=== PATIENT | male | born 1935 | race African-American/Black ===

== ENCOUNTER 2017-01-29 10:51 | Inpatient (IN) ==
[2017-01-29] MEDS ORDERED: methylPREDNISolone SOD SUC 125 MG/2 ML VIAL IV STA (11:08)
[2017-01-29] MEDS ORDERED: ALBUTEROL 2.5 MG/3 ML NEB RESP TX SCH (11:30)
[2017-01-29] MEDS ORDERED: methylPREDNISolone SOD SUC 125 MG/2 ML VIAL ONE (11:50)
--- NOTE | 2017-01-29 11:59 | XRay Report ---
XR chest 1V portable Indication: Shortness of breath Comparison: 04 Jan 2017 Findings: The heart and mediastinum are stable in size and configuration. Small amount of aorta calcification is present similar to previous exam. The pulmonary vascularity is normal in caliber. No lung infiltrates, effusions, pneumothorax or other abnormality is demonstrated. Impression: No acute cardiopulmonary disease. PROCEDURE INTERPRETED AT [facility] DEPARTMENT OF RADIOLOGY Final Report Signed by: Dr. Zac Colon
[2017-01-29 12:01] LABS: ABG Base Excess 1.4 MMOL/L (-2.5-2.5); ABG HCO3 27.1 MMOL/L (20-26); ABG Oxygen Saturation 96.5 % (95-100); ABG PCO2 46.3 MM HG (35-48); ABG PH 7.385 (7.35-7.45); ABG PO2 86.3 MM HG (80-95); ABG TCO2 28.5 MMOL/L (23-27)
[2017-01-29 12:17] LABS: Basophils % 0.6 % (0.0-0.8); Eosinophils # 0.2 10*3/uL (0.0-0.87); Eosinophils % 3.3 % (0.00-10.9); Hematocrit 46.6 VOL% (42.0-52.0); Hemoglobin 15.8 GM/DL (14.0-18.0); Immature Granulocytes % 0.6 %; Immature Granulocytes Absolute 0.04 #; Lymphocytes # 1.2 10*3/uL (1.4-4.0); Lymphocytes % 16.8 % (21.2-54.2); Mean Corpuscular HGB Conc 33.9 GM/DL (32-36); Mean Corpuscular Hemoglobin 28 PG (27-34); Mean Corpuscular Volume 82.6 FL (87-102); Mean Platelet Volume 9.2 FL (9.6-12.0); Monocytes # 0.4 10*3/uL (0.11-0.8); Monocytes % 5.8 % (1.7-12.7); Neutrophils # 5.1 10*3/uL (1.4-7.4); Neutrophils % 72.9 % (38.7-73.9); Platelet Count 214 T/CUMM (130-400); Red Blood Count 5.64 MC/CUMM (3.8-5.5); Red Cell Distribution Width 15.1 % (9.3-17.3)
[2017-01-29 12:48] LABS: Alanine Aminotransferase 17 U/L (16-61); Albumin 3.6 G/DL (3.4-5.0); Alkaline Phosphatase 102 U/L (45-117); Aspartate Amino Transferase 15 U/L (0-37); Blood Urea Nitrogen 14 MG/DL (7-18); Calcium 9.2 MG/DL (8.5-10.1); Glucose 111 MG/DL (74-106); Osmolality,Calculated 282.3 MOS/KG (273-304); Potassium 4.4 MMOL/L (3.5-5.1); Sodium 141 MMOL/L (136-145); Total Protein 6.8 G/DL (6.4-8.3); Troponin I Only < 0.015 NG/ML (0.00-0.045)
[2017-01-29] MEDS ORDERED: ALBUTEROL/IPRATROPIUM 3 ML NEB RESP TX STA (12:57)
--- NOTE | 2017-01-29 14:46 | Emergency Department Note ---
Jenny Ricketts Brittany, am scribing for, and in the presence of, Anastacio Calzada MD 11:10. Zheng Rikcetts Doug C, MD, personally performed the services described in this documentation, ascribed by Carla Alvarado in my presence, and it is both accurate and complete [id number] . Arrival - Arrival Chief Complaint: Shortness of Breath Stated Complaint: sob ED Nursing Triage Note: C/o shortness of breath with exertion-onset "a while ago ", worse this morning. Denies CP or N/V. Mode of Arrival: Ambulatory Limitations: No Limitations Source: Patient Time Seen by Provider: 01/29/17 11:03 - History of Present Illness HPI Narrative: Patient is a 81-year-old black male presents emergency room complaining of increasing shortness of breath for the last 2 days. Patient has a history of COPD and states he is having more of his typical exacerbations. Patient states is felt a little warm but has not measured his fever. Denies any increased sputum production or pain. He has not had any hemoptysis or chest pain. Patient states he still continues to smoke in spite of [employer] advice to the contrary. 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 Onset (ago): hour(s) (Started to get worse this morning) Consistency: constant Severity: moderate, similar to previous episodes Allergies/Adverse Reactions: Allergies Allergy/AdvReac Type Severity Reaction Status Date / Time No Known Allergies Allergy Verified 11/28/16 13:56 Home Medications: Home Medications Medication Instructions Recorded Confirmed Type Albuterol Sulfate [Proair HFA] 90 mcg INH Q4-6H PRN 01/03/16 01/29/17 History Iron,Carbonyl/Ascorbic Acid 1 tablet PO DAILY 01/03/16 01/29/17 History [Icar-C Tablet] Lovastatin 10 mg PO DAILY W/SUPPER 01/03/16 01/29/17 History Tamsulosin [Flomax] 0.4 mg PO BID 01/03/16 01/29/17 History Albuterol/Ipratropium Neb [Duoneb] 3 ml RESP TX TID #90 nebulization 02/24/16 Rx solution Quinapril [Accupril] 20 mg PO DAILY #30 tablet 02/24/16 01/29/17 Rx Tiotropium Br/Olodaterol HCl 2.5 gm IH RT DAILY 03/23/16 01/29/17 History [Stiolto Respimat Inhal [place]] Finasteride 5 mg PO DAILY 06/09/16 01/29/17 History Theophylline ER Tab (24 Hr) 200 mg PO BID 12/21/16 01/29/17 History Furosemide Tab [Lasix Tab] 20 mg PO DAILY 01/29/17 01/29/17 History Potassium Chloride 8 meq PO QPM 01/29/17 01/29/17 History Review of System - Review of System 12 point system: reviewed and no additional remarkable complaints except as stated - Review of System Constitutional: Present: fever (Per pt, fever at night ) Respiratory: Absent: cough Cardiovascular: Present: dyspnea on exertion. Absent: chest pain Medical,Surgical,& Family Hx - Medical History Cardio: History of: Cardiac Dysrhythmia (brief atrial flutter), Hypertension HEENT: History of: Dental Problems (DENTURES-full set) Endocrine: History of: Dyslipidemia No history of: Diabetes Mellitus (NIDDM) (DR TOOK OFF MED SUGAR WENT UP DUE TO STEROIDS) Rheumatology: History of;: Gout Respiratory: History of: COPD, Respiratory Problems (emphysema) Genitourinary: History of: Prostate Problems (BPH), Genitourinary Cancer ( bladder cancer) Other: History of: Cancer (Bladder), MRSA - Surgical History HEENT Surgeries: Surgical HX of: Eye Surgery (CATARACTS) Abdominal Surgeries: Surgical HX of: Colonoscopy, EGD Reproductive Surgeries: Surgical HX of;: Genitourinary Surgery (turp) - Family History Family History: Reports;: Family Cancer (SISTER), Family Hypertension (SIBLINGS) Denies;: Family Anesthesia Reaction, Family Diabetes, Family Heart Disease, Family Psychiatric Problems, Family Stroke - Social History Smoking Status: Current some day smoker Frequency of Alcohol Use: None Type of Drug Use: None Exam Vital Signs: Vital Signs Temperature 98.7 F 01/29/17 12:58 Pulse Rate 94 H 01/29/17 14:12 Respiratory Rate 20 01/29/17 14:17 Blood Pressure 106/72 01/29/17 12:58 O2 Sat by Pulse Oximetry 99 01/29/17 14:17 - General General appearance: alert, in distress (Mild respiratory distress) - Head Head exam: Present: atraumatic, normocephalic, normal inspection - Eye Eye exam: Present: normal appearance, PERRL, EOMI. Absent: nystagmus, miosis, mydriasis - ENT ENT exam: Present: normal exam, normal oropharynx, mucous membranes moist, TM's normal bilaterally, normal external ear exam - Neck Neck exam: Present: normal inspection, full ROM, trachea midline. Absent: tenderness, meningismus, lymphadenopathy, thyromegaly - Chest Chest inspection: Present: normal inspection, symmetric chest wall rise. Absent : tenderness, rash, abscess - Respiratory Respiratory exam: Present: wheezes (Diffuse wheezing ). Absent: normal lung sounds bilaterally, prolonged expiratory phase, rales, respiratory distress, rhonchi, stridor - Cardiovascular Cardiovascular exam: Present: regular rate, normal rhythm, normal heart sounds. Absent: murmur, rubs, gallop, clicks, JVD - Abdominal Exam Abdominal exam: Present: soft, normal bowel sounds. Absent: distention, tenderness, guarding, rebound, rigidity - Rectal Exam Rectal exam: Present: deferred - Extremities Exam Extremities exam: Present: normal inspection, full ROM, normal capillary refill. Absent: tenderness, pedal edema, joint swelling, calf tenderness - Back Exam Back exam: Present: normal inspection, full ROM. Absent: tenderness, muscle spasm, rashes - Neurological Exam Neurological exam: Present: alert, oriented X3, CN II-XII intact. Absent: motor sensory deficit - Psychiatric Psychiatric exam: Present: normal affect, normal mood. Absent: depressed, agitated, anxious, flat affect, manic - Skin Skin exam: Present: warm, dry, intact, normal color. Absent: rash, cyanosis, diaphoresis, erythema, pallor, mottled Course Course Narrative: Patient was given 3 albuterol treatments, IV Solu-Medrol and DuoNeb treatment. Patient's wheezing improved dramatically with his O2 sats staying in the high 90s on 2 L of oxygen. Stop his oxygen his O2 sats continued to stay adequate with him measuring above 95%. He continued to have significant respiratory wheeze however and it was felt he warranted admission. I discussed patient with Farida amaya covering the hospitalist service she will see the patient here in the emergency room Results - Labs CBC & BMP: 01/29/17 11:51 01/29/17 11:51 Lab Results: I have reviewed the patients labs - EKG EKG results: interpreted by SAVI, sinus rhythm (99 bpm), no acute changes - Diagnostic Findings Procedure: Chest x-ray: report reviewed by me (Hyperexpanded) Disposition Clinical Impression: COPD exacerbation Case discussed with: patient, patient's family Disposition: Still a Patient Condition: Guarded Time of Disposition: 14:46
--- NOTE | 2017-01-29 15:15 | Hospitalist History & Physical ---
<Azeem Arevalo - Last Filed: 01/29/17 15:04> Assessment and Plan (1) COPD exacerbation Status: Acute Assessment and plan: We will start empiric antibiotics, inhaled bronchodilators, and intravenous corticosteroids. We will recheck labs and chest x-ray in a.m. We have already requested pulmonary consult with Dr. Oliva, patient is known to him. Current Visit: Yes History of Present Illness Chief complaint: Shortness of breath History of present illness: This is a very pleasant 81-year-old male that presented to the ED at [facility] this afternoon for evaluation of shortness of breath. Patient has a medical history significant for: Chronic obstructive pulmonary disease, hypertension, anemia, atrial flutter, dyslipidemia, non-insulin- dependent diabetes mellitus, gouty arthritis, emphysema, benign prostatic hypertrophy, carcinoma of the bladder, and methicillin-resistant Staphylococcus aureus. Patient has a surgical history significant for: Cataract removal, colonoscopy, and transurethral resection of the prostate. The patient reported the onset of the above symptoms 2 days prior to presentation. The patient has a long standing history of chronic obstructive pulmonary disease and attributes these symptoms to his typical exacerbations. Pertinent positives include: shortness of breath; pertinent negatives include: nausea, abdominal pain, syncope, chest pain, arm and jaw pain, and vertigo In addition, the patient reported that he possibly had fever on last night however, he never took his temperature. The patient was assessed at the time of presentation. Labs were obtained; hematology panel reported white blood cell count at 7.0, hemoglobin 15.8, hematocrit of 46.6, and platelet count at 214. Arterial blood gas was obtained reported pH of 7.385, PCO2 46.3, PO2 86.3, and HC03 at 27.1. Chemistry panel reported sodium at 141, potassium 4.4, chloride 105, carbon dioxide 28, anion gap at 12.4, BUN of 14, creatinine at 1.20, glucose at 111, calculated osmolality at 282.3, calcium at 9.2, total bilirubin is 0.40, AST 15, ALT at 17 , alkaline phosphatase at 102, total protein is 6.8, and albumin 3.6. Cardiac enzymes were obtained which reported a troponin of less than 0.015. BNP was noted at 15. Chest x-ray was obtained which was benign for any acute cardiopulmonary disease processes. After brief discussion with both Dr. Calzada and Dr. Miller, the patient will be admitted to the hospitalist services for continuation of care. We will consult Dr. Oliva, patient is known to him to assist in the management of the patient's chronic pulmonary obstructive disease. Home Medications Medication Instructions Recorded Confirmed Type Albuterol Sulfate [Proair HFA] 90 mcg INH Q4-6H PRN 01/03/16 01/29/17 History Iron,Carbonyl/Ascorbic Acid 1 tablet PO DAILY 01/03/16 01/29/17 History [Icar-C Tablet] Lovastatin 10 mg PO DAILY W/SUPPER 01/03/16 01/29/17 History Tamsulosin [Flomax] 0.4 mg PO BID 01/03/16 01/29/17 History Albuterol/Ipratropium Neb [Duoneb] 3 ml RESP TX TID #90 nebulization 02/24/16 Rx solution Quinapril [Accupril] 20 mg PO DAILY #30 tablet 02/24/16 01/29/17 Rx Tiotropium Br/Olodaterol HCl 2.5 gm IH RT DAILY 03/23/16 01/29/17 History [Stiolto Respimat Inhal [place]] Finasteride 5 mg PO DAILY 06/09/16 01/29/17 History Theophylline ER Tab (24 Hr) 200 mg PO BID 12/21/16 01/29/17 History Furosemide Tab [Lasix Tab] 20 mg PO DAILY 01/29/17 01/29/17 History Potassium Chloride 8 meq PO QPM 01/29/17 01/29/17 History Allergies Allergy/AdvReac Type Severity Reaction Status Date / Time No Known Allergies Allergy Verified 11/28/16 13:56 Medical,Surgical,& Family Hx - Medical History Cardio: History of: Cardiac Dysrhythmia (brief atrial flutter), Hypertension HEENT: History of: Dental Problems (DENTURES-full set) Endocrine: History of: Dyslipidemia No history of: Diabetes Mellitus (NIDDM) (DR TOOK OFF MED SUGAR WENT UP DUE TO STEROIDS) Rheumatology: History of;: Gout Respiratory: History of: COPD, Respiratory Problems (emphysema) Genitourinary: History of: Prostate Problems (BPH), Genitourinary Cancer ( bladder cancer) Other: History of: Cancer (Bladder), MRSA - Surgical History HEENT Surgeries: Surgical HX of: Eye Surgery (CATARACTS) Abdominal Surgeries: Surgical HX of: Colonoscopy, EGD Reproductive Surgeries: Surgical HX of;: Genitourinary Surgery (turp) - Family History Family History: Reports;: Family Cancer (SISTER), Family Hypertension (SIBLINGS) Denies;: Family Anesthesia Reaction, Family Diabetes, Family Heart Disease, Family Psychiatric Problems, Family Stroke - Social History Smoking Status: Current some day smoker Frequency of Alcohol Use: None Type of Drug Use: None 12 point system: reviewed and no additional remarkable complaints except as stated Exam - Constitutional Vitals: Period Temp Pulse Resp BP Sys/Walters Pulse Ox Last 24 Hr 98.7 F-98.7 F 91-95 14-22 106-106/72-72 94-100 General appearance: normal weight, no acute distress - Head Head exam: Present: normal inspection, normocephalic, atraumatic - Eye Eye exam: Present: EOMI. Absent: conjunctival injection Pupils: Present: LACHO, normal accommodation - ENT ENT exam: Present: normal exam, normal external ear exam, normal oropharynx - Neck Neck exam: Present: normal inspection. Absent: lymphadenopathy, meningismus, tenderness, thyromegaly - Respiratory Respiratory exam: Present: wheezes. Absent: accessory muscle use, chest wall tenderness, decreased breath sounds, prolonged expiratory phase, rales, rhonchi , stridor - Cardiovascular Cardiovascular exam: Present: regular rate and rhythm. Absent: bradycardia, carotid bruit, diastolic murmur, gallop, JVD, rubs, systolic murmur - GI/Abdominal GI/Abdominal exam: Present: normal bowel sounds, soft. Absent: tenderness - Extremities Exam Extremities exam: Present: normal inspection, normal capillary refill, full ROM. Absent: edema - Back Exam Back exam: Present: normal inspection - Neurological Exam Neurological exam: Present: alert, oriented X3, CN II-XII intact - Psychiatric Psychiatric exam: Present: normal affect, normal mood - Skin Skin exam: Present: normal color, warm, dry Results - Labs CBC & BMP: 01/29/17 11:51 01/29/17 11:51 Lab Results: I have reviewed the past 24 hour labs <Shonda Miller - Last Filed: 01/29/17 16:51> History of Present Illness History of present illness: Shared visit with Azeem Arevalo NP. Mr. Colby is a 81 year old male with a history of COPD and bladder cancer who presented to the hospital with increased SOB x 1 day. According to the daughter, pt has had progressive LUGO since the beginning of the month. He reports increased wheezing and mild dry cough. No fever. No chest pain. No palpitations. No nausea or vomiting. No nausea or vomiting. No abd pain. Mild lightheadedness. He still feels weak. No change to meds recently. Daughter also reports he has had more ataxia. No slurred speech, change in vision, headache, difficulty swallowing, chest pain, or palpitations, parathesias or paralysis. A 10 point review of systems was reviewed and was otherwise unremarkable. PMH, PSH, MEDS, ALLERGIES, FH, SH reviewed. See STITCH WHEELER H and H and P and I agree. Vitals: reviewed GEN: A and O x 3 HEENT: PERRL, EOMI, Sclera clear, Conjunctiva pink, nares patent. No discharge or epistaxis noted. O/P clear. NECK: supple. No LAD or thyromegaly. No LAD CV:RRR no M LUNGS: CTAB diminished lung sounds with prolonged expiratory phase, nonlabored ABD: soft, NT, ND, +BS EXT: Warm no c/c/e Neuro: CN 2-12, 5/5 strength of upper and lower extremities bilaterally. Sensory exam is grossly intact. Gait not assessed. Finger to nose intact. Babinski absent. No clonus noted. Labs/Investigative studies reviewed. A/P: 1. Acute exacerbation of COPD 2. Reported History of DM2 3. BPH 4. History of bladder cancer and BPH 5. Gout 6. Hx ataxia - IV steroids, Bronchodilators, inhalers, check theophylline level. Resume theophylline pending level. Oxygen as needed - I.S.S. and check HgbA1c. - On Flomax and Finasteride. - CT head, PT/OT consult. - DVT prophylaxis - GI prophylaxis since on high dose steroids Medical,Surgical,& Family Hx - Social History Have you smoked in the last 12 months: Yes Time spent discussing smoking cessation with patient: more than 10 minutes Marital Status: Lives With:: daughter lives within walking distance Exam - Constitutional Vitals: Period Temp Pulse Resp BP Sys/Walters Pulse Ox Last 24 Hr 98.7 F-98.7 F 91-95 14-22 106-136/72-76 92-100 Results - Labs CBC & BMP: 01/29/17 11:51 01/29/17 11:51
[2017-01-29] MEDS ORDERED: ALBUTEROL 2.5 MG/3 ML NEB RESP TX PRN (15:57)
[2017-01-29] MEDS ORDERED: GLUCAGON 1 MG VIAL IM PRN (16:27)
[2017-01-29] MEDS ORDERED: DEXTROSE 50% 25 GM/50 ML VIAL IV PRN (16:27)
--- NOTE | 2017-01-29 17:15 | CT Report ---
Referring physician: Shonda Miller MD Exam: CT brain without contrast Date: 01/29/2017 Comparison: None Reason: Ataxia, bladder cancer Technique: Axial images of the head were obtained without the use of contrast. Total DLP was 1103.60 mGy*cm. Findings: No hydrocephalus or midline shift is present. There is no evidence of an acute infarction, recent intracranial hemorrhage or abnormal mass effect. The osseous structures appear intact. Diffuse atrophy and cerebral hypodensities. Several areas of calcification are noted. There is a small hyperdense finding in the left clinton. The mastoid air cells and visualized paranasal sinuses are clear. Impression: No acute infarction identified. Diffuse atrophy and significant microvascular disease. Multiple calcifications are noted including a somewhat linear finding in the left clinton which could be related to possible vascular structure. This finding makes it more difficult to exclude possible minimal hemorrhage in this location. MRI of the brain including postcontrast scans may be helpful for further evaluation as discussed with the patient's nurse, Priscilla at 5:10 PM on 01/29/2017. The CT exam was performed using one or more of the following dose reduction techniques: Automated exposure control and adjustment of the mA and/or kV according to patient size. PROCEDURE INTERPRETED AT [facility] DEPARTMENT OF RADIOLOGY Final Report Signed by: Dr. Jory Edge
[2017-01-29] MEDS: INSULIN LISPRO 100 UNIT/ML SUBCUT SCH ×2 (18:42→21:55)
--- NOTE | 2017-01-29 18:49 | Magnetic Resonance Report ---
Exam: MR head/brain wo con Date: 01/29/2017 5:25 PM Comparison: CT brain 01/29/2017 Indication: Ataxia, bladder cancer, abnormal CT Technique:[Multiple acquisitions were obtained including sagittal T1, coronal T2, and axial ADC, diffusion, FLAIR, T2, GRE, and T1 scans without contrast only. Scans were obtained on a 1.5 Mirta magnet.] Findings: The ventricles remain normal in size with no midline displacement. The pituitary has a normal appearance and the cerebellar tonsils are normal in their location. No acute infarction is identified in the diffusion scans. No evidence of hemorrhage, mass, or extracerebral collection. Diffuse atrophy and diffuse FLAIR/T2 hyperintensities.Enlarged perivascular spaces are noted which represent a normal variant. Some of these findings may represent chronic left basal ganglia/thalamic chronic lacunar infarcts. No acute findings in the paranasal sinuses, orbits, temporal bones, or [place] of [place]. Impression: No acute infarction, mass, or area of hemorrhage. Diffuse cerebral atrophy and significant microvascular disease. T2 hyperintensities can also be associated with demyelinating disease, vasculitis, viral illness, etc. Enlarged perivascular spaces which can be seen as a normal variant. However some of the findings may be related to chronic left basal ganglia/thalamic lacunar infarcts. PROCEDURE INTERPRETED AT [facility] DEPARTMENT OF RADIOLOGY Final Report Signed by: Dr. Jory Edge
[2017-01-29] MEDS: ALBUTEROL/IPRATROPIUM 3 ML NEB RESP TX SCH (19:29)
[2017-01-29] MEDS: TAMSULOSIN 0.4 MG CAPSULE PO SCH (21:54)
[2017-01-29] MEDS: BUDESONIDE/FORMOTEROL 80-4.5 INHALER 6.9 GM INH SCH (21:54)
[2017-01-29] MEDS: methylPREDNISolone SOD SUC 40 MG/1 ML VIAL IV SCH (21:54)
[2017-01-29] MEDS: CEFEPIME 1,000 MG in SODIUM CHLORIDE 0.9% 100 ML IV SCH (21:55)
[2017-01-30] MEDS: ALBUTEROL/IPRATROPIUM 3 ML NEB RESP TX SCH ×5 (01:12→23:51)
[2017-01-30 03:57] LABS: Basophils % 0.1 % (0.0-0.8); Hematocrit 42.9 VOL% (42.0-52.0); Hemoglobin 14.4 GM/DL (14.0-18.0); Immature Granulocytes % 0.7 %; Immature Granulocytes Absolute 0.05 #; Lymphocytes # 0.5 10*3/uL (1.4-4.0); Lymphocytes % 6.2 % (21.2-54.2); Mean Corpuscular HGB Conc 33.6 GM/DL (32-36); Mean Corpuscular Hemoglobin 27 PG (27-34); Mean Corpuscular Volume 81.7 FL (87-102); Mean Platelet Volume 9.9 FL (9.6-12.0); Monocytes # 0.1 10*3/uL (0.11-0.8); Monocytes % 1.1 % (1.7-12.7); Neutrophils # 6.9 10*3/uL (1.4-7.4); Neutrophils % 91.9 % (38.7-73.9); Platelet Count 205 T/CUMM (130-400); Red Blood Count 5.25 MC/CUMM (3.8-5.5); Red Cell Distribution Width 15.1 % (9.3-17.3); White Blood Count 7.5 T/CUMM (4-12)
[2017-01-30 04:12] LABS: Phosphorous 2.5 MG/DL (2.5-4.9)
[2017-01-30 04:14] LABS: Risk Ratio 2.05; VLDL CHOLESTEROL 14.2 MG/DL
[2017-01-30 04:17] LABS: Albumin 3.1 G/DL (3.4-5.0); Bilirubin,Total 1.4 MG/DL (0.2-1.0); Calcium 8.6 MG/DL (8.5-10.1); Osmolality,Calculated 290.1 MOS/KG (273-304); Potassium 4.6 MMOL/L (3.5-5.1); Total Protein 6.1 G/DL (6.4-8.3)
[2017-01-30 04:25] LABS: Free T4 (Free Thyroxine) 0.95 NG/DL (0.76-1.46); Thyroid Stimulating Hormone 0.488 uIU/ml (0.358-3.74)
[2017-01-30 04:58] LABS: Lymphocytes 8 % (20-55); Segmented Neutrophils 92 % (50-85); Total Cells Counted 100
[2017-01-30 04:59] LABS: Platelet Estimate Normal
[2017-01-30] MEDS: CEFEPIME 1,000 MG in SODIUM CHLORIDE 0.9% 100 ML IV SCH ×3 (06:00→21:20)
[2017-01-30] MEDS: methylPREDNISolone SOD SUC 40 MG/1 ML VIAL IV SCH ×3 (06:00→21:15)
--- NOTE | 2017-01-30 06:56 | EKG Report ---
Stationary ECG Study [facility] ER Test Date: 01/29/2017 11:02:59 AM Pat Name: SIDNEY WALKER Department: Room: 224 Gender: M Scalder: : 1935 Requested by: Varinder Ferrer Order Number: [id number] MD: WILEY ARRINGTON Intervals [place] Rate: 99 P: 75 AR: 151 QRS: 56 QRSD: 77 T: 83 QT: 321 QTc: 377 Interpretive Statements SINUS RHYTHM Electronically Signed On 01-30-17 10:05:10 CDT by WILEY ARRINGTON [email or web address]
--- NOTE | 2017-01-30 07:23 | Hospitalist Progress Note ---
Hospitalist: Subjective Interval history: Orthostatics negative. Shortness of breath improving. Still with some slight wheezing. Tolerating oral intake. Still has some dyspnea on exertion. Exam - Constitutional Vitals: Period Temp Pulse Resp BP Sys/Walters Pulse Ox Last 24 Hr 97.2 F-98.7 F 91-98 14-22 106-157/70-76 92-100 Exam: GEN: A and O x 3, sitting in a chair HEENT: PERRL, EOMI, Sclera clear, Conjunctiva pink, nares patent. No discharge or epistaxis noted. O/P clear. NECK: supple. No LAD or thyromegaly. No LAD CV:RRR no M LUNGS: Slightly better aeration slight wheeze heard bilaterally on expiration with diminished lung sounds. Prolonged expiratory phase, nonlabored ABD: soft, NT, ND, +BS EXT: Warm no c/c/e Neuro: CN 2-12, 5/5 strength of upper and lower extremities bilaterally. Sensory exam is grossly intact. Gait not assessed. Finger to nose intact. Babinski absent. No clonus noted. Results - Labs CBC & BMP: 01/30/17 03:24 01/30/17 03:24 - Impressions 1. Acute exacerbation of COPD in a patient with ongoing tobacco use - IV steroids, Bronchodilators, inhalers, Theophylline level low at 6.4. Resume theophylline. Oxygen as needed - Smoking cessation recommended - Nicotine patch 2. Reported History of DM2 (diet controlled HgbA1c 6.0) - Cont I.S.S. and accuchecks ac,hs while on steroids. 3. BPH - On Flomax and Finasteride. 4. History of bladder cancer 5. Gout 6. 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 PT/OT consult. - Awaiting orthostatics - RPR Not reactive; TSH and Free T4 within normal limits. - Vitamin B12 supplementation - F/u ECHO, carotid dopplers 7. Vitamin B12 deficiency - start supplementation with IM x 7 days, then continue supplementation 8. CKD stage 3 - monitor creatinine - DVT prophylaxis - GI prophylaxis since on high dose steroids I will be away several days. One of my associates will follow in my absence.
[2017-01-30] MEDS: INSULIN LISPRO 100 UNIT/ML SUBCUT SCH ×4 (07:52→21:27)
[2017-01-30] MEDS ORDERED: CYANOCOBALAMIN 1000 MCG/1 ML VIAL IM SCH (09:00)
[2017-01-30] MEDS: NICOTINE 7 MG/24 HR PATCH TRANSDERM SCH (09:36)
[2017-01-30] MEDS: TAMSULOSIN 0.4 MG CAPSULE PO SCH ×2 (09:36→21:15)
[2017-01-30] MEDS: FINASTERIDE 5 MG TABLET PO SCH (09:37)
[2017-01-30] MEDS: PANTOPRAZOLE 40 MG TABLET PO SCH (09:38)
[2017-01-30] MEDS: BUDESONIDE/FORMOTEROL 80-4.5 INHALER 6.9 GM INH SCH ×2 (09:39→21:21)
[2017-01-30] MEDS: THEOPHYLLINE ER (24 HR) 200 MG CAPSULE PO SCH ×2 (09:39→21:15)
--- NOTE | 2017-01-30 09:59 | Ultrasound Report ---
Exam: Carotid ultrasound Date: 01/30/2017 Comparison: None Technique: Duplex scans of the carotid and vertebral arteries using B-mode/Griffith scale imaging and Doppler spectral analysis and color flow. Reason: Ataxia Findings: The right ICA measures 5.6 mm in diameter and the left ICA measures 5.0 mm in diameter. Color-flow documented in the visualized arteries. The peak systolic velocities are as follows: Right CCA: 100.3 cm/s Right ICA: 72.9 cm/s Right ECA: 112.0 cm/s Left CCA: 88.5 cm/s Left ICA: 87.2 cm/s Left ECA: 99.8 cm/s The peak systolic ICA/CCA velocity ratios are as follows: 0.7 on the right and 1.0 on the left. Antegrade flow is present in both vertebral arteries. Impression:[Less than 50% stenosis in both internal carotid arteries with heterogeneous plaque formation. Antegrade flow in both vertebral arteries.] The Society of Radiologists in Ultrasound consensus conference criteria was used. The Ultrasound images were captured and stored. PROCEDURE INTERPRETED AT [facility] DEPARTMENT OF RADIOLOGY Final Report Signed by: Dr. Jory Edge
--- NOTE | 2017-01-30 10:00 | Pulmonology Consult Note ---
Assessment and Plan (1) COPD exacerbation Status: Acute Assessment and plan: Patient comes in with a mild COPD exacerbation. He appears to be relatively stable at present. He will continue with his bronchodilator therapy. Current Visit: No (2) Bladder tumor Status: Resolved Assessment and plan: The patient has had bladder cancer and is in remission at this point. Current Visit: No (3) Hypertension Status: Chronic Assessment and plan: His blood pressure and heart rate appear stable. Current Visit: No Qualifiers: Hypertension type: essential hypertension Qualified Code(s): I10 - Essential (primary) hypertension (4) CKD (chronic kidney disease) stage 3, GFR 30-59 ml/min Status: Acute Assessment and plan: His creatinine is up to 1.4 Current Visit: No History of Present Illness Chief complaint: Shortness of breath History of present illness: Mr. Colby is a 81 year old black male that has a long history of COPD. He came into the emergency room yesterday because he has been having more shortness of breath for a few days. His family says that he was giving out fairly easily over the past several weeks. He felt like he was having more trouble breathing and maybe had a little fever. He was admitted to the emergency room with an exacerbation of his COPD. He says he is not coughing up much sputum. He has not been having any chest pain. He says he is comfortable at present. He does still smoke some. Home Medications Medication Instructions Recorded Confirmed Type Albuterol Sulfate [Proair HFA] 90 mcg INH Q4-6H PRN 01/03/16 01/29/17 History Iron,Carbonyl/Ascorbic Acid 1 tablet PO DAILY 01/03/16 01/29/17 History [Icar-C Tablet] Lovastatin 10 mg PO DAILY W/SUPPER 01/03/16 01/29/17 History Tamsulosin [Flomax] 0.4 mg PO BID 01/03/16 01/29/17 History Albuterol/Ipratropium Neb [Duoneb] 3 ml RESP TX TID #90 nebulization 02/24/16 Rx solution Quinapril [Accupril] 20 mg PO DAILY #30 tablet 02/24/16 01/29/17 Rx Tiotropium Br/Olodaterol HCl 2.5 gm IH RT DAILY 03/23/16 01/29/17 History [Stiolto Respimat Inhal [place]] Finasteride 5 mg PO DAILY 06/09/16 01/29/17 History Theophylline ER Tab (24 Hr) 200 mg PO BID 12/21/16 01/29/17 History Furosemide Tab [Lasix Tab] 20 mg PO DAILY 01/29/17 01/29/17 History Potassium Chloride 8 meq PO DAILY 01/29/17 01/29/17 History Allergies Allergy/AdvReac Type Severity Reaction Status Date / Time No Known Allergies Allergy Verified 11/28/16 13:56 - Constitutional Constitutional: Present: chills, fatigue, fever(s). Absent: weight loss - EENT Eyes: Absent: loss of vision Ears: Absent: decreased hearing Nose, mouth and throat: Absent: dysphagia, headache(s), sinus pressure - Cardiovascular Cardiovascular: Present: dyspnea. Absent: chest pain at rest, edema, orthopnea , palpitations, PND - Respiratory Respiratory: Present: cough, dyspnea, wheezing. Absent: hemoptysis, change in phlegm color - Gastrointestinal Gastrointestinal: Absent: abdominal pain, change in bowel habits, dysphagia, nausea, vomiting - Genitourinary Genitourinary: Present: difficulty urinating, hematuria (Has a history of bladder cancer). Absent: dysuria - Musculoskeletal Musculoskeletal: Present: arthralgias. Absent: muscle weakness - Neurological Neurological: Absent: abnormal speech, focal weakness, paresthesias - Psychiatric Psychiatric: Absent: anxiety Exam (Pulmonay) H&P - Constitutional Vitals: Period Temp Pulse Resp BP Sys/Walters Pulse Ox Last 24 Hr 96.9 F-98.7 F 61-98 14-22 106-157/70-76 90-100 General appearance: normal weight, no acute distress (He looks comfortable sitting up in a chair.) - Head Head exam: Present: normal inspection, normocephalic - Eye Eye exam: Present: EOMI. Absent: conjunctival injection, scleral icterus Pupils: Present: LACHO - ENT ENT exam: Present: normal exam, other (No sinus tenderness) - Neck Neck exam: Present: normal inspection. Absent: lymphadenopathy, thyromegaly - Respiratory Respiratory exam: Present: decreased breath sounds, prolonged expiratory phase, wheezes (He has minimal wheezing at present.) - Cardiovascular Cardiovascular exam: Present: regular rate and rhythm. Absent: gallop, JVD, systolic murmur - GI/Abdominal GI/Abdominal exam: Present: normal bowel sounds, soft. Absent: distended, organomegaly, tenderness - Extremities Exam Extremities exam: Absent: calf tenderness, edema - Back Exam Back exam: Present: normal inspection - Neurological Exam Neurological exam: Present: alert, oriented X3, CN II-XII intact - Psychiatric Psychiatric exam: Present: normal affect, normal mood - Skin Skin exam: Present: warm, dry Medical,Surgical,& Family Hx - Medical History Cardio: History of: Cardiac Dysrhythmia (brief atrial flutter), Hypertension HEENT: History of: Dental Problems (DENTURES-full set) Endocrine: History of: Dyslipidemia No history of: Diabetes Mellitus (NIDDM) (DR TOOK OFF MED SUGAR WENT UP DUE TO STEROIDS) Rheumatology: History of;: Gout Respiratory: History of: COPD, Respiratory Problems (emphysema) Genitourinary: History of: Prostate Problems (BPH), Genitourinary Cancer ( bladder cancer) Other: History of: Cancer (Bladder), MRSA - Surgical History HEENT Surgeries: Surgical HX of: Eye Surgery (CATARACTS) Abdominal Surgeries: Surgical HX of: Colonoscopy, EGD Reproductive Surgeries: Surgical HX of;: Genitourinary Surgery (turp) - Family History Family History: Reports;: Family Cancer (SISTER), Family Hypertension (SIBLINGS) Denies;: Family Anesthesia Reaction, Family Diabetes, Family Heart Disease, Family Psychiatric Problems, Family Stroke - Social History Smoking Status: Current some day smoker Frequency of Alcohol Use: None Type of Drug Use: None Results - Labs CBC & BMP: 01/30/17 03:24 01/30/17 03:24 Labs: His PO2 was 86 with a PCO2 of 46 and a pH of 7.38 - Diagnostic Findings Procedure: Chest x-ray: image reviewed by me, report reviewed by me (Chest x- ray shows COPD changes.)
--- NOTE | 2017-01-30 10:19 | XRay Report ---
Portable chest Date: 01/30/2017 Clinical history: COPD Comparison: 01/29/2017 Technique: Portable AP sitting chest Findings: The heart is small and compressed by the over expanded lungs. Chronic scarring in the lungs with stable mediastinum and osseous structures. Impression: COPD with chronic scarring. PROCEDURE INTERPRETED AT [facility] DEPARTMENT OF RADIOLOGY Final Report Signed by: Dr. Jory Edge
[2017-01-31 04:10] LABS: Albumin 3.2 G/DL (3.4-5.0); Osmolality,Calculated 292.1 MOS/KG (273-304); Phosphorous 2.3 MG/DL (2.5-4.9); Potassium 4.8 MMOL/L (3.5-5.1)
[2017-01-31] MEDS: CEFEPIME 1,000 MG in SODIUM CHLORIDE 0.9% 100 ML IV SCH ×3 (06:35→20:16)
[2017-01-31] MEDS: methylPREDNISolone SOD SUC 40 MG/1 ML VIAL IV SCH ×3 (06:35→20:08)
[2017-01-31] MEDS: ALBUTEROL/IPRATROPIUM 3 ML NEB RESP TX SCH ×3 (07:11→19:18)
--- NOTE | 2017-01-31 08:47 | Pulmonology Progress Note ---
Pulmonary - PN: Subj Interval history: Patient is an 81-year-old black man that has a long history of COPD. He came in with a mild exacerbation and is doing better now. He said he had a fairly good night. He had some coughing spells earlier this morning but they are better. He feels like his breathing is doing okay. He is tolerating his medication fairly well. Exam (Progress Note) - Constitutional Vitals: Period Temp Pulse Resp BP Sys/Walters Pulse Ox Last 24 Hr 96.3 F-98.2 F 50-108 18-22 123-144/66-84 91-99 Exam: General appearance: normal weight, no acute distress (He looks comfortable sitting up in a chair. He is not in any respiratory distress now.) - Head Head exam: Present: normal inspection, normocephalic - Eye Eye exam: Present: EOMI. Absent: conjunctival injection, scleral icterus Pupils: Present: LACHO - ENT ENT exam: Present: normal exam, other (No sinus tenderness) - Neck Neck exam: Present: normal inspection. Absent: lymphadenopathy, thyromegaly - Respiratory Respiratory exam: Present: He does have decreased breath sounds but is moving air okay with just very minimal rhonchi. - Cardiovascular Cardiovascular exam: Present: regular rate and rhythm. Absent: gallop, JVD, systolic murmur - GI/Abdominal GI/Abdominal exam: Present: normal bowel sounds, soft. Absent: distended, organomegaly, tenderness - Extremities Exam Extremities exam: Absent: calf tenderness, edema, he is moving his arms and legs well. - Back Exam Back exam: Present: normal inspection - Neurological Exam Neurological exam: Present: alert, oriented X3, CN II-XII intact - Psychiatric Psychiatric exam: Present: normal affect, normal mood - Skin Skin exam: Present: warm, dry Results - Labs CBC & BMP: 01/30/17 03:24 01/31/17 02:20 Assessment and Plan (1) COPD exacerbation Status: Acute Assessment and plan: Patient comes in with a mild COPD exacerbation. He appears to be relatively stable at present. He does have severe lung disease but seems to be stable at present. He is tolerating the steroids and bronchodilator therapy. He can probably go home in a day or so. Current Visit: No (2) Hypertension Status: Chronic Assessment and plan: His blood pressure and heart rate appear stable. Current Visit: No Qualifiers: Hypertension type: essential hypertension Qualified Code(s): I10 - Essential (primary) hypertension (3) CKD (chronic kidney disease) stage 3, GFR 30-59 ml/min Status: Acute Assessment and plan: His creatinine is up to 1.5 Current Visit: No
[2017-01-31] MEDS: NICOTINE 7 MG/24 HR PATCH TRANSDERM SCH (09:06)
[2017-01-31] MEDS: BUDESONIDE/FORMOTEROL 80-4.5 INHALER 6.9 GM INH SCH ×2 (09:08→20:17)
[2017-01-31] MEDS: TAMSULOSIN 0.4 MG CAPSULE PO SCH ×2 (09:08→20:17)
[2017-01-31] MEDS: FINASTERIDE 5 MG TABLET PO SCH (09:08)
[2017-01-31] MEDS: PANTOPRAZOLE 40 MG TABLET PO SCH (09:08)
[2017-01-31] MEDS: THEOPHYLLINE ER (24 HR) 200 MG CAPSULE PO SCH (09:08)
[2017-01-31] MEDS: INSULIN LISPRO 100 UNIT/ML SUBCUT SCH ×4 (09:32→22:10)
--- NOTE | 2017-01-31 09:40 | Hospitalist Progress Note ---
Assessment and Plan (1) COPD exacerbation Status: Acute Current Visit: Yes (2) CKD (chronic kidney disease) stage 3, GFR 30-59 ml/min Status: Acute Current Visit: No (3) History of prostate cancer Status: Acute Current Visit: No (4) Hypertension Status: Chronic Assessment and plan: -Continue nebulized breathing treatments, IV antibiotics, IV steroids, oxygen per nasal cannula -Patient will need evaluation for home oxygen prior to discharge -Continue nicotine patch -Continue chronic home medications for treatment of BPH as well as hypertension -Creatinine level slowly increasing during the hospital stay, will repeat in the a.m., medications evaluated, no obvious cause noted -Continue DVT and GI prophylaxis Current Visit: No Qualifiers: Hypertension type: essential hypertension Qualified Code(s): I10 - Essential (primary) hypertension Hospitalist: Subjective Interval history: Patient is an 81-year-old male admitted to the hospital with an acute exacerbation of COPD. The patient continues to complain of dyspnea on exertion. However, he reports improvement of shortness of breath at rest as well as cough. He denies any chest pain, fevers or chills overnight. He is tolerating a diet as well. Exam - Constitutional Vitals: Period Temp Pulse Resp BP Sys/Walters Pulse Ox Last 24 Hr 96.3 F-98.2 F 50-108 18-22 123-143/66-84 91-99 General appearance: normal weight, other (Elderly male, awake and alert, sitting in a chair) - Head Head exam: Present: normal inspection - Eye Eye exam: Present: EOMI Pupils: Present: LACHO - ENT ENT exam: Present: normal exam - Respiratory Respiratory exam: Present: wheezes (Mild expiratory wheezing bilaterally). Absent: chest wall tenderness, decreased breath sounds, rales, rhonchi, stridor - Cardiovascular Cardiovascular exam: Present: regular rate and rhythm. Absent: JVD, rubs, systolic murmur, tachycardia - GI/Abdominal GI/Abdominal exam: Present: normal bowel sounds, soft. Absent: ascites, distended, tenderness - Extremities Exam Extremities exam: Present: full ROM. Absent: edema - Neurological Exam Neurological exam: Present: alert, oriented X3, CN II-XII intact. Absent: altered - Psychiatric Psychiatric exam: Present: normal affect, normal mood - Skin Skin exam: Present: normal color, warm Results - Labs CBC & BMP: 01/30/17 03:24 01/31/17 02:20 Lab Results: I have reviewed the past 24 hour labs (Creatinine level continues to increase)
--- NOTE | 2017-01-31 10:26 | ECHO Report ---
Emilio Colby Exam Date: 01/30/2017 10:25 Referring Physician: Technologist: Gin Hobbs Age: 81 Ht (in): 70 Wt (lb): 151 Gender: M Exam Location: [facility] Echo Indications: Diabetes, COPD, Hx. CVA, HTN BP: 135 / 74 HR: 91 Rhythm: Sinus Technical Quality: Technically difficult study IMPRESSIONS Normal left ventricular size and systolic function, left ventricular ejection fraction is estimated at 60 %. There is grade 1 diastolic dysfunction. The left ventricular cavity size structure and function are normal. Tricuspid regurgitation velocities suggest a RVSP of 26 mmHg plus the right atrial pressure. MEASUREMENTS (Male / Female) Normal Values 2D ECHO LV Diastolic Diameter PLAX 3.5 cm 4.2 - 5.9 / 3.9 - 5.3 cm LV Systolic Diameter PLAX 1.4 cm LV Fractional Shortening PLAX 60.0 % IVS Diastolic Thickness 1.1 cm 0.6 - 1.0 / 0.6 - 0.9 cm LVPW Diastolic Thickness 1.1 cm 0.6 - 1.0 / 0.6 - 0.9 cm RV Internal Dim ED PLAX 2.0 cm Aortic Root Diameter 2.6 cm LA Systolic Diameter LX 2.5 cm 3.0 - 4.0 / 2.7 - 3.8 cm DOPPLER TR Peak Velocity 254.0 cm/s TR Peak Gradient 25.8 mmHg FINDINGS Left Ventricle Normal left ventricular size and systolic function, left ventricular ejection fraction is estimated at 60 %. There is no regional wall motion abnormality. There is grade 1 diastolic dysfunction. The left ventricular cavity size structure and function are normal Right Ventricle Normal right ventricular size. Right Atrium Normal right atrial size. Left Atrium Normal left atrial size. Mitral Valve Mild mitral valve sclerosis. Mild mitral valve regurgitation. Aortic Valve Mild aortic valve sclerosis. Tricuspid Valve Morphologically normal tricuspid valve. Mild tricuspid valve regurgitation. Tricuspid regurgitation velocities suggest a RVSP of 26 mmHg plus the right atrial pressure. Pulmonic Valve Morphologically normal pulmonic valve. Mild pulmonary valve regurgitation. Pericardium No pericardial effusion. Aorta Normal size aortic root and proximal ascending aorta. Elisabeth Matamoros (Electronically Signed) Final Date: 31 January 2017 10:25
[2017-02-01] MEDS: ALBUTEROL/IPRATROPIUM 3 ML NEB RESP TX SCH ×3 (00:12→13:50)
[2017-02-01] MEDS: methylPREDNISolone SOD SUC 40 MG/1 ML VIAL IV SCH ×2 (03:18→12:56)
[2017-02-01] MEDS: CEFEPIME 1,000 MG in SODIUM CHLORIDE 0.9% 100 ML IV SCH ×2 (04:18→12:52)
[2017-02-01 05:15] LABS: Basophils % 0.1 % (0.0-0.8); Hematocrit 39.3 VOL% (42.0-52.0); Hemoglobin 13.2 GM/DL (14.0-18.0); Immature Granulocytes % 2.5 %; Immature Granulocytes Absolute 0.36 #; Lymphocytes # 0.6 10*3/uL (1.4-4.0); Lymphocytes % 4.5 % (21.2-54.2); Mean Corpuscular HGB Conc 33.6 GM/DL (32-36); Mean Corpuscular Hemoglobin 27 PG (27-34); Mean Corpuscular Volume 81.5 FL (87-102); Mean Platelet Volume 9.6 FL (9.6-12.0); Monocytes # 0.4 10*3/uL (0.11-0.8); Monocytes % 2.7 % (1.7-12.7); Neutrophils # 12.7 10*3/uL (1.4-7.4); Neutrophils % 90.2 % (38.7-73.9); Platelet Count 193 T/CUMM (130-400); Red Blood Count 4.82 MC/CUMM (3.8-5.5); Red Cell Distribution Width 14.9 % (9.3-17.3); White Blood Count 14.1 T/CUMM (4-12)
[2017-02-01 05:49] LABS: Lymphocytes 3 % (20-55); Platelet Estimate Normal; Segmented Neutrophils 95 % (50-85); Total Cells Counted 100
[2017-02-01 05:52] LABS: Calcium 8.8 MG/DL (8.5-10.1); Osmolality,Calculated 291.3 MOS/KG (273-304); Potassium 4.4 MMOL/L (3.5-5.1)
--- NOTE | 2017-02-01 08:49 | Hospitalist Progress Note ---
Assessment and Plan (1) COPD exacerbation Status: Acute Assessment and plan: Impression: 1. COPD exacerbation 2. Dizziness Plan: I will check back after lunch to see how he has done with physical therapy. He may be ready for discharge. This note was completed using [employer] voice recognition software. There may be lay out and detail drafter errors as a result. Current Visit: No Hospitalist: Subjective Interval history: Follow-up COPD exacerbation. The patient says that his breathing appears to be at baseline. His main concern is some dizziness when he is up and walking. He says that he has had this at home. Review of the PT note shows that he had some dizziness when he was walking on Wednesday. Will see what their assessment looks like today. He may be about ready for discharge. Exam - Constitutional Vitals: Period Temp Pulse Resp BP Sys/Walters Pulse Ox Last 24 Hr 97.2 F-98.4 F 50-85 18-20 117-137/63-77 94-100 Vital signs are noted above. Heart is regular with distant tones and no murmur or gallop. He has some rare scattered expiratory wheezes. He is sitting up at the bedside with no noted nystagmus or dizziness. He is awake and alert. Results - Labs CBC & BMP: 02/01/17 04:44 02/01/17 04:44 Lab Results: I have reviewed the past 24 hour labs
[2017-02-01] MEDS: INSULIN LISPRO 100 UNIT/ML SUBCUT SCH ×3 (08:51→16:42)
[2017-02-01] MEDS: TAMSULOSIN 0.4 MG CAPSULE PO SCH (08:52)
[2017-02-01] MEDS: NICOTINE 7 MG/24 HR PATCH TRANSDERM SCH (08:53)
[2017-02-01] MEDS: PANTOPRAZOLE 40 MG TABLET PO SCH (08:58)
[2017-02-01] MEDS: FINASTERIDE 5 MG TABLET PO SCH (08:58)
[2017-02-01] MEDS: BUDESONIDE/FORMOTEROL 80-4.5 INHALER 6.9 GM INH SCH (08:59)
--- NOTE | 2017-02-01 12:08 | Pulmonology Progress Note ---
Pulmonary - PN: Subj Interval history: Patient is an 81-year-old black man that has a long history of COPD. He came in with a mild exacerbation and is doing better now. He feels like his breathing is better today and he is having much less shortness of breath. He is sitting up and looks comfortable. He says his cough and congestion are improved. Exam (Progress Note) - Constitutional Vitals: Period Temp Pulse Resp BP Sys/Walters Pulse Ox Last 24 Hr 97.2 F-98.4 F 50-85 17-20 117-137/63-77 94-100 Exam: General appearance: normal weight, no acute distress (He looks comfortable sitting up in a chair. He is not in any respiratory distress now.) - Head Head exam: Present: normal inspection, normocephalic - Eye Eye exam: Present: EOMI. Absent: conjunctival injection, scleral icterus Pupils: Present: LACHO - ENT ENT exam: Present: normal exam, other (No sinus tenderness) - Neck Neck exam: Present: normal inspection. Absent: lymphadenopathy, thyromegaly - Respiratory Respiratory exam: Present: He does have decreased breath sounds but he has better air movement with less wheezing now. - Cardiovascular Cardiovascular exam: Present: regular rate and rhythm. Absent: gallop, JVD, systolic murmur - GI/Abdominal GI/Abdominal exam: Present: normal bowel sounds, soft. Absent: distended, organomegaly, tenderness - Extremities Exam Extremities exam: Absent: calf tenderness, edema, he is moving his arms and legs well. - Back Exam Back exam: Present: normal inspection - Neurological Exam Neurological exam: Present: alert, oriented X3, CN II-XII intact - Psychiatric Psychiatric exam: Present: normal affect, normal mood - Skin Skin exam: Present: warm, dry Results - Labs CBC & BMP: 02/01/17 04:44 02/01/17 04:44 Assessment and Plan (1) COPD exacerbation Status: Acute Assessment and plan: Patient comes in with a mild COPD exacerbation. He appears to be relatively stable at present. He does have severe lung disease but seems to be stable at present. He is tolerating the steroids and bronchodilator therapy. Overall he is much better and he can go home from a pulmonary standpoint. He will continue Stiolto at home and can taper his prednisone. Current Visit: No (2) Hypertension Status: Chronic Assessment and plan: His blood pressure and heart rate appear stable. Current Visit: No Qualifiers: Hypertension type: essential hypertension Qualified Code(s): I10 - Essential (primary) hypertension (3) CKD (chronic kidney disease) stage 3, GFR 30-59 ml/min Status: Acute Assessment and plan: His creatinine is up to 1.4 Current Visit: No
--- NOTE | 2017-02-01 14:50 | Discharge Summary ---
Hospital Course - Hospital Course Hospital Course: Discharge diagnosis COPD with acute exacerbation Dizziness The patient presented to the hospital with some dyspnea. He was felt to be in a COPD exacerbation. He also complained of some dizziness, which was described mainly as an unsteady gait. He has a cane at home. Physical therapy saw the patient. On the day of discharge, he was able to walk over 100 feet. His COPD improved with appropriate treatment. He is now ready for discharge. Medication reconciliation has been performed. Regular diet. Activity as tolerated. Follow-up with local physician. I asked the family if they were interested in home health, and they will defer for now. They may discuss this with their primary customer care professional if the patient does not continue to improve. This note was completed using Dr. [employer] voice recognition software. There may be director of valuation errors as a result. Diagnosis - Discharge Diagnosis (1) COPD exacerbation Status: Acute Discharge Plan - Discharge Data Disposition: Disch To Home/Self Care Condition at Discharge: Stable Discharge Diet: advance to your usual diet Activity: resume usual activities as tolerated Hygiene: no restrictions Weight Bearing at Discharge: full weight bearing - Discharge Medications Continue Lovastatin 10 mg PO DAILY W/SUPPER Tamsulosin [Flomax] 0.4 mg PO BID Iron,Carbonyl/Ascorbic Acid [Icar-C Tablet] 1 tablet PO DAILY Albuterol Sulfate [Proair HFA] 90 mcg INH Q4-6H PRN PRN Reason: Shortness Of Breath Albuterol/Ipratropium Neb [Duoneb] 3 ml RESP TX TID #90 nebulization solution Quinapril [Accupril] 20 mg PO DAILY #30 tablet Tiotropium Br/Olodaterol HCl [Stiolto Respimat Inhal [place]] 2.5 gm IH RT DAILY Finasteride 5 mg PO DAILY Potassium Chloride 8 meq PO DAILY Furosemide Tab [Lasix Tab] 20 mg PO DAILY PRN PRN Reason: Edema Theophylline ER Tab (24 Hr) 200 mg PO BID - Follow Up or Referral - Forms/Instructions Exam - Constitutional Vitals: Period Temp Pulse Resp BP Sys/Walters Pulse Ox Last 24 Hr 97.2 F-98.4 F 49-85 17-20 117-137/63-77 94-100 See exam documented earlier today. Discharge Results Labs on day of discharge: Labs from last 24 hours 02/01/17 02/01/17 02/01/17 11:09 07:40 04:44 WBC RBC Hgb Hct MCV MCH MCHC RDW Plt Count MPV Neut % (Auto) Lymph % (Auto) [place] % (Auto) Eos % (Auto) Baso % (Auto) Neut # (Auto) Lymph # (Auto) [place] # (Auto) Eos # (Auto) Baso # (Auto) Total Counted Immature Gran % Nucleated RBC % Immature Gran # Segmented Neutrophils Lymphocytes Monocytes Nucleated RBCs # Platelet Estimate Pappenheimer Bodies Sodium 141 Potassium 4.4 Chloride 107 Carbon Dioxide 25 Anion Gap 13.4 BUN 27 H Creatinine 1.40 H GFR Calculation 58 BUN/Creatinine Ratio 19.00 Glucose 210 H POC Glucose 213 H 169 H Calculated Osmolality 291.3 Calcium 8.8 02/01/17 01/31/17 01/31/17 04:44 20:31 15:23 WBC 14.1 H D RBC 4.82 Hgb 13.2 L Hct 39.3 L MCV 81.5 L MCH 27 MCHC 33.6 RDW 14.9 Plt Count 193 MPV 9.6 Neut % (Auto) 90.2 H Lymph % (Auto) 4.5 L [place] % (Auto) 2.7 Eos % (Auto) 0.0 Baso % (Auto) 0.1 Neut # (Auto) 12.7 H Lymph # (Auto) 0.6 L [place] # (Auto) 0.4 Eos # (Auto) 0.0 Baso # (Auto) 0.0 Total Counted 100 Immature Gran % 2.5 Nucleated RBC % 0.0 Immature Gran # 0.36 Segmented Neutrophils 95 H Lymphocytes 3 L Monocytes 2 Nucleated RBCs # 0.00 Platelet Estimate Normal Pappenheimer Bodies Vegetable Trimmer Sodium Potassium Chloride Carbon Dioxide Anion Gap BUN Creatinine GFR Calculation BUN/Creatinine Ratio Glucose POC Glucose 188 H 207 H Calculated Osmolality Calcium DS: Provider Date of admission: 01/29/17 14:57 Primary care physician: Charlene Khan Attending physician on admission: Shonda Miller MD Consults: 01/29/17 15:57 Consult to Physician [CONS] Routine Comment: Consulting Provider: Raz Oliva When should Consulting Provider be notified: Now Consult to Specialist Group: Pulmonology Person Notified: Dr Raz Oliva Date Notified: 01/29/17 Time Notified: 17:15 Consult Notification Comment: per phone will see in am 01/29/17 16:30 Consult to Occupational Therapy [CONS] Routine Reason for Occupational Therapy: Evaluate and Treat Consult to Physical Therapy [CONS] Routine Reason for Physical Therapy: Evaluate and Treat Discharging clinician: Benito Engel MD Expected date of discharge: 02/01/17
[2017-02-01 16:15] VITALS: BP 129/60
== END 2017-02-01 16:41 | disposition home or self-care (01) | DRG 192 ==
LOC: N.ED 10:51 → SUATTDRO 14:57 → N.EDINP 14:57 → N.2E 15:55
PROVIDERS: ADMIT Pediatrics; ATTEND Internal Medicine Geriatric Medicine

== ENCOUNTER 2017-07-05 19:23 | Inpatient (IN) ==
[2017-07-05] MEDS ORDERED: methylPREDNISolone SOD SUC 125 MG/2 ML VIAL IV STA (20:09)
[2017-07-05] MEDS ORDERED: ALBUTEROL/IPRATROPIUM 3 ML NEB RESP TX STA (20:09)
[2017-07-05] MEDS ORDERED: SODIUM CHLORIDE 0.9% 500 ML IV STA (20:09)
[2017-07-05 20:58] LABS: Alanine Aminotransferase 14 U/L (16-61); Albumin 2.8 G/DL (3.4-5.0); Alkaline Phosphatase 101 U/L (45-117); Aspartate Amino Transferase 21 U/L (0-37); Blood Urea Nitrogen 25 MG/DL (7-18); Glucose 106 MG/DL (74-106); Magnesium 2.2 MG/DL (1.8-2.4); Osmolality,Calculated 276.8 MOS/KG (273-304); Sodium 137 MMOL/L (136-145); Total Protein 6.7 G/DL (6.4-8.3); Troponin I Only < 0.015 NG/ML (0.00-0.045)
[2017-07-05 21:03] LABS: Basophils % 0.4 % (0.0-0.8); Eosinophils % 0.1 % (0.00-10.9); Hematocrit 45.1 VOL% (42.0-52.0); Hemoglobin 15.6 GM/DL (14.0-18.0); Immature Granulocytes % 0.8 %; Immature Granulocytes Absolute 0.06 #; Lymphocytes # 0.7 10*3/uL (1.4-4.0); Lymphocytes % 9.2 % (21.2-54.2); Mean Corpuscular HGB Conc 34.6 GM/DL (32-36); Mean Corpuscular Hemoglobin 28 PG (27-34); Mean Corpuscular Volume 79.7 FL (87-102); Mean Platelet Volume 9.9 FL (9.6-12.0); Monocytes # 0.7 10*3/uL (0.11-0.8); Monocytes % 9.1 % (1.7-12.7); Neutrophils # 6.1 10*3/uL (1.4-7.4); Neutrophils % 80.4 % (38.7-73.9); Platelet Count 302 T/CUMM (130-400); Red Blood Count 5.66 MC/CUMM (3.8-5.5); Red Cell Distribution Width 13.8 % (9.3-17.3); White Blood Count 7.6 T/CUMM (4-12)
[2017-07-05] MEDS ORDERED: methylPREDNISolone SOD SUC 125 MG/2 ML VIAL ONE (21:13)
[2017-07-05] MEDS: ALBUTEROL 2.5 MG/3 ML NEB RESP TX SCH ×2 (21:20→23:10)
[2017-07-05] MEDS ORDERED: cefTRIAXone 1,000 MG in SODIUM CHLORIDE 0.9% 100 ML IV STA (21:53)
[2017-07-05] MEDS ORDERED: cefTRIAXone 1,000 MG VIAL ONE (21:57)
[2017-07-05 22:07] LABS: Apearance,Urine Slightly Hazy (Clear); Bacteria,Urine Occasional /HPF (Few); Bilirubin,Urine Negative (Negative); Blood, Urine Moderate mg/dL (Negative); Glucose,Urine (UA) Negative (Negative); Ketones,Urine Negative (Negative); Nitrite,Urine Negative (Negative); Protein,Urine 30 MG/DL; RBC,Urine 29 /HPF (0-4); Squamous Epithelial Cell,Urine Occasional /HPF (0-10); Urine Color Yellow (Yellow); Urine Specific Gravity 1.011 (1.001-1.035); WBC,Urine 2 /HPF (0-6)
[2017-07-06] MEDS ORDERED: FUROSEMIDE 20 MG TABLET PO PRN (02:49)
[2017-07-06] MEDS ORDERED: ONDANSETRON 4 MG/2 ML VIAL IV PRN (02:49)
[2017-07-06] MEDS ORDERED: BISACODYL 5 MG TABLET PO PRN (02:49)
[2017-07-06] MEDS ORDERED: ACETAMINOPHEN 325 MG TABLET PO PRN (02:49)
[2017-07-06] MEDS: ENOXAPARIN 30 MG/0.3 ML SYRINGE SUBCUT SCH (03:44)
[2017-07-06] MEDS: DEXTROSE 5% NACL 0.45% 1,000 ML IV SCH ×2 (03:44→16:15)
[2017-07-06 06:22] LABS: Basophils % 0.2 % (0.0-0.8); Hematocrit 38.2 VOL% (42.0-52.0); Immature Granulocytes % 0.4 %; Immature Granulocytes Absolute 0.02 #; Lymphocytes # 0.5 10*3/uL (1.4-4.0); Lymphocytes % 9.1 % (21.2-54.2); Mean Corpuscular Hemoglobin 27 PG (27-34); Mean Corpuscular Volume 80.1 FL (87-102); Mean Platelet Volume 9.4 FL (9.6-12.0); Monocytes # 0.1 10*3/uL (0.11-0.8); Neutrophils # 4.8 10*3/uL (1.4-7.4); Neutrophils % 88.3 % (38.7-73.9); Platelet Count 256 T/CUMM (130-400); Red Blood Count 4.77 MC/CUMM (3.8-5.5); Red Cell Distribution Width 13.8 % (9.3-17.3); White Blood Count 5.4 T/CUMM (4-12)
[2017-07-06 06:46] LABS: Band Neutrophils 4 % (0-10); Lymphocytes 9 % (20-55); Segmented Neutrophils 85 % (50-85); Total Cells Counted 100
[2017-07-06 06:47] LABS: Hypochromasia 1+; Microcytosis Slight; Ovalocytes Slight
[2017-07-06 06:51] LABS: Albumin 2.1 G/DL (3.4-5.0); Bilirubin,Total 0.4 MG/DL (0.2-1.0); Calcium 8.3 MG/DL (8.5-10.1); Magnesium 2.3 MG/DL (1.8-2.4); Osmolality,Calculated 286.8 MOS/KG (273-304); Potassium 4.2 MMOL/L (3.5-5.1); Risk Ratio 2.98; Total Protein 5.6 G/DL (6.4-8.3); VLDL CHOLESTEROL 13.8 MG/DL
[2017-07-06] MEDS: ALBUTEROL/IPRATROPIUM 3 ML NEB RESP TX SCH ×3 (07:46→19:43)
[2017-07-06] MEDS: TAMSULOSIN 0.4 MG CAPSULE PO SCH ×2 (10:19→21:43)
[2017-07-06] MEDS: IRON (CARBONYL)/VIT C/B12/FA TABLET PO SCH (10:20)
[2017-07-06] MEDS: POTASSIUM CHLORIDE 8 MEQ CAPSULE PO SCH (10:20)
[2017-07-06] MEDS: THEOPHYLLINE ER (24 HR) 400 MG TABLET PO SCH ×2 (10:20→21:42)
[2017-07-06] MEDS: PANTOPRAZOLE 40 MG TABLET PO SCH (10:20)
[2017-07-06] MEDS: QUINAPRIL 20 MG TABLET PO SCH (10:23)
[2017-07-06] MEDS: LOVASTATIN 20 MG TABLET PO SCH (18:12)
[2017-07-07] MEDS: ENOXAPARIN 30 MG/0.3 ML SYRINGE SUBCUT SCH (02:03)
[2017-07-07] MEDS: DEXTROSE 5% NACL 0.45% 1,000 ML IV SCH ×3 (04:21→18:37)
[2017-07-07 07:08] LABS: Basophils % 0.1 % (0.0-0.8); Hematocrit 36.9 VOL% (42.0-52.0); Hemoglobin 12.7 GM/DL (14.0-18.0); Immature Granulocytes % 1.3 %; Immature Granulocytes Absolute 0.11 #; Lymphocytes # 0.8 10*3/uL (1.4-4.0); Mean Corpuscular HGB Conc 34.4 GM/DL (32-36); Mean Corpuscular Hemoglobin 28 PG (27-34); Mean Corpuscular Volume 80.2 FL (87-102); Mean Platelet Volume 9.6 FL (9.6-12.0); Monocytes # 0.6 10*3/uL (0.11-0.8); Monocytes % 6.7 % (1.7-12.7); Neutrophils # 7.1 10*3/uL (1.4-7.4); Neutrophils % 82.9 % (38.7-73.9); Platelet Count 271 T/CUMM (130-400); Red Cell Distribution Width 13.9 % (9.3-17.3); White Blood Count 8.5 T/CUMM (4-12)
[2017-07-07] MEDS: ALBUTEROL/IPRATROPIUM 3 ML NEB RESP TX SCH ×3 (07:17→19:24)
[2017-07-07 07:28] LABS: Calcium 8.5 MG/DL (8.5-10.1); Osmolality,Calculated 290.3 MOS/KG (273-304); Potassium 4.2 MMOL/L (3.5-5.1)
[2017-07-07 07:32] LABS: Lymphocytes 4 % (20-55); Segmented Neutrophils 92 % (50-85); Total Cells Counted 100
[2017-07-07 07:33] LABS: Giant Platelets Few; Hypochromasia 1+; Microcytosis Slight; Ovalocytes Slight; Platelet Estimate Adequate
[2017-07-07] MEDS: POTASSIUM CHLORIDE 8 MEQ CAPSULE PO SCH (08:52)
[2017-07-07] MEDS: PANTOPRAZOLE 40 MG TABLET PO SCH (08:52)
[2017-07-07] MEDS: TAMSULOSIN 0.4 MG CAPSULE PO SCH ×2 (08:52→20:30)
[2017-07-07] MEDS: THEOPHYLLINE ER (24 HR) 400 MG TABLET PO SCH ×2 (08:52→20:30)
[2017-07-07] MEDS: IRON (CARBONYL)/VIT C/B12/FA TABLET PO SCH (08:52)
[2017-07-07] MEDS: QUINAPRIL 20 MG TABLET PO SCH (08:52)
[2017-07-07] MEDS: LOVASTATIN 20 MG TABLET PO SCH (16:15)
[2017-07-07] MEDS: DOXYCYCLINE HYCLATE 100 MG CAPSULE PO SCH (20:30)
[2017-07-08] MEDS: ALBUTEROL/IPRATROPIUM 3 ML NEB RESP TX SCH ×2 (07:20→13:10)
[2017-07-08] MEDS ORDERED: ENOXAPARIN 40 MG/0.4 ML SYRINGE SUBCUT SCH (09:00)
[2017-07-08] MEDS: IRON (CARBONYL)/VIT C/B12/FA TABLET PO SCH (09:31)
[2017-07-08] MEDS: POTASSIUM CHLORIDE 8 MEQ CAPSULE PO SCH (09:31)
[2017-07-08] MEDS: TAMSULOSIN 0.4 MG CAPSULE PO SCH (09:31)
[2017-07-08] MEDS: THEOPHYLLINE ER (24 HR) 400 MG TABLET PO SCH (09:31)
[2017-07-08] MEDS: QUINAPRIL 20 MG TABLET PO SCH (09:31)
[2017-07-08] MEDS: DOXYCYCLINE HYCLATE 100 MG CAPSULE PO SCH (09:32)
[2017-07-08] MEDS: PANTOPRAZOLE 40 MG TABLET PO SCH (09:32)
[2017-07-08 11:04] VITALS: BP 123/68
[2017-07-08] MEDS: DEXTROSE 5% NACL 0.45% 1,000 ML IV SCH (14:18)
== END 2017-07-08 16:00 | disposition home or self-care (01) | DRG 190 ==
LOC: N.ED 19:23 → N.EDINP 07-06 02:10 → SUATTDRO 07-06 02:10 → N.3E 07-06 02:38
PROVIDERS: ADMIT Internal Medicine; ATTEND Hospitalist

== ENCOUNTER 2017-08-29 08:57 | Inpatient (IN) ==
[2017-08-29] MEDS ORDERED: LEVOFLOXACIN INJ 750 MG in PREMIX 1 EACH IV STA (09:49)
[2017-08-29] MEDS ORDERED: ONDANSETRON 4 MG/2 ML VIAL IV STA (09:49)
[2017-08-29] MEDS ORDERED: methylPREDNISolone SOD SUC 125 MG/2 ML VIAL IV STA (09:49)
[2017-08-29] MEDS ORDERED: FUROSEMIDE 100 MG/10 ML VIAL IV STA (09:49)
[2017-08-29] MEDS ORDERED: ALBUTEROL NEB SOLN 5 MG/ML 20 ML/BOTTLE RESP TX SCH (10:00)
[2017-08-29] MEDS ORDERED: LEVOFLOXACIN INJ 0 ML IV ONE (10:09)
[2017-08-29] MEDS ORDERED: methylPREDNISolone SOD SUC 125 MG/2 ML VIAL ONE (10:10)
[2017-08-29] MEDS ORDERED: FUROSEMIDE 100 MG/10 ML VIAL ONE (10:10)
[2017-08-29] MEDS ORDERED: ONDANSETRON 4 MG/2 ML VIAL ONE (10:10)
[2017-08-29 10:41] LABS: Basophils # 0.1 10*3/uL (0.0-0.2); Basophils % 0.8 % (0.0-0.8); Eosinophils # 0.4 10*3/uL (0.0-0.87); Eosinophils % 4.8 % (0.00-10.9); Hematocrit 45.7 VOL% (42.0-52.0); Hemoglobin 14.9 GM/DL (14.0-18.0); Immature Granulocytes % 0.4 %; Immature Granulocytes Absolute 0.03 #; Lymphocytes # 0.7 10*3/uL (1.4-4.0); Lymphocytes % 9.2 % (21.2-54.2); Mean Corpuscular HGB Conc 32.6 GM/DL (32-36); Mean Corpuscular Hemoglobin 27 PG (27-34); Mean Corpuscular Volume 83.7 FL (87-102); Mean Platelet Volume 9.3 FL (9.6-12.0); Monocytes # 0.4 10*3/uL (0.11-0.8); Monocytes % 4.8 % (1.7-12.7); Platelet Count 229 T/CUMM (130-400); Red Blood Count 5.46 MC/CUMM (3.8-5.5); Red Cell Distribution Width 15.2 % (9.3-17.3); White Blood Count 7.5 T/CUMM (4-12)
[2017-08-29 10:50] LABS: INR 1.1; PT Patient Result 11.2 SECS; Partial Thromboplastin Time 29.2 SECS (0-40)
[2017-08-29 11:21] LABS: Alanine Aminotransferase 17 U/L (16-61); Albumin 3.2 G/DL (3.4-5.0); Alkaline Phosphatase 87 U/L (45-117); Aspartate Amino Transferase 12 U/L (0-37); Blood Urea Nitrogen 15 MG/DL (7-18); Calcium 9.3 MG/DL (8.5-10.1); Glucose 99 MG/DL (74-106); Osmolality,Calculated 281.3 MOS/KG (273-304); Potassium 3.6 MMOL/L (3.5-5.1); Sodium 141 MMOL/L (136-145); Total Protein 7.1 G/DL (6.4-8.3)
[2017-08-29 11:33] LABS: Troponin I Only 0.166 NG/ML (0.00-0.045)
[2017-08-29] MEDS ORDERED: ALBUTEROL 2.5 MG/3 ML NEB RESP TX PRN (12:38)
[2017-08-29] MEDS: ALBUTEROL/IPRATROPIUM 3 ML NEB RESP TX SCH ×2 (14:10→21:28)
[2017-08-29] MEDS: methylPREDNISolone SOD SUC 40 MG/1 ML VIAL IV SCH (17:47)
[2017-08-30] MEDS: ALBUTEROL/IPRATROPIUM 3 ML NEB RESP TX SCH ×4 (01:54→19:33)
[2017-08-30] MEDS: methylPREDNISolone SOD SUC 40 MG/1 ML VIAL IV SCH ×3 (02:29→18:38)
[2017-08-30 05:59] LABS: Hematocrit 39.1 VOL% (42.0-52.0); Hemoglobin 13.1 GM/DL (14.0-18.0); Immature Granulocytes % 0.6 %; Immature Granulocytes Absolute 0.05 #; Lymphocytes # 0.5 10*3/uL (1.4-4.0); Lymphocytes % 5.9 % (21.2-54.2); Mean Corpuscular HGB Conc 33.5 GM/DL (32-36); Mean Corpuscular Hemoglobin 28 PG (27-34); Mean Corpuscular Volume 82.1 FL (87-102); Mean Platelet Volume 9.5 FL (9.6-12.0); Monocytes # 0.1 10*3/uL (0.11-0.8); Monocytes % 1.8 % (1.7-12.7); Neutrophils # 7.1 10*3/uL (1.4-7.4); Neutrophils % 91.7 % (38.7-73.9); Platelet Count 220 T/CUMM (130-400); Red Blood Count 4.76 MC/CUMM (3.8-5.5); White Blood Count 7.8 T/CUMM (4-12)
[2017-08-30 06:31] LABS: Calcium 8.7 MG/DL (8.5-10.1); Magnesium 1.9 MG/DL (1.8-2.4); Osmolality,Calculated 290.3 MOS/KG (273-304); Potassium 4.5 MMOL/L (3.5-5.1); Troponin I Only 0.075 NG/ML (0.00-0.045)
[2017-08-30 07:06] LABS: Hypochromasia 1+; Lymphocytes 10 % (20-55); Segmented Neutrophils 89 % (50-85); Total Cells Counted 100
[2017-08-30 07:07] LABS: Microcytosis 1+; Platelet Estimate Normal
[2017-08-30] MEDS ORDERED: LEVOFLOXACIN INJ 750 MG in PREMIX 1 EACH IV SCH (10:00)
[2017-08-30] MEDS ORDERED: LEVOFLOXACIN INJ 500 MG in PREMIX 1 EACH IV SCH (11:00)
[2017-08-30] MEDS: LOVASTATIN 20 MG TABLET PO SCH (18:36)
[2017-08-30] MEDS ORDERED: ENOXAPARIN 60 MG/0.6 ML SYRINGE SUBCUT SCH (21:00)
[2017-08-30] MEDS: METOPROLOL TARTRATE 25 MG TABLET PO SCH (21:33)
[2017-08-31] MEDS: ALBUTEROL/IPRATROPIUM 3 ML NEB RESP TX SCH ×7 (00:24→20:32)
[2017-08-31] MEDS: methylPREDNISolone SOD SUC 40 MG/1 ML VIAL IV SCH ×3 (02:26→18:11)
[2017-08-31 05:38] LABS: Risk Ratio 2.23; VLDL CHOLESTEROL 25.8 MG/DL
[2017-08-31 06:50] LABS: Calcium 8.5 MG/DL (8.5-10.1); Osmolality,Calculated 289.3 MOS/KG (273-304); Potassium 4.3 MMOL/L (3.5-5.1)
[2017-08-31] MEDS ORDERED: ALBUTEROL 2.5 MG/3 ML NEB RESP TX ONE (07:03)
[2017-08-31] MEDS: LACTATED RINGERS 1,000 ML IV SCH (07:04)
[2017-08-31] MEDS ORDERED: TOBRAMYCIN 80 MG/2 ML VIAL ONE (07:05)
[2017-08-31] MEDS ORDERED: ALBUTEROL 2.5 MG/3 ML NEB RESP TX PRN (07:59)
[2017-08-31] MEDS ORDERED: NON-FORMULARY MEDICATION (Tiotropium Br/Olodaterol Hcl [Stiolto Respimat Inhal Spray] 2 PU INH SCH (09:00)
[2017-08-31] MEDS ORDERED: LEVOFLOXACIN INJ 750 MG in PREMIX 1 EACH IV SCH (09:00)
[2017-08-31] MEDS: ASPIRIN EC 81 MG TABLET PO SCH (11:07)
[2017-08-31] MEDS: TAMSULOSIN 0.4 MG CAPSULE PO SCH ×2 (11:07→21:21)
[2017-08-31] MEDS: QUINAPRIL 20 MG TABLET PO SCH (11:07)
[2017-08-31] MEDS: POTASSIUM CHLORIDE 8 MEQ CAPSULE PO SCH (11:07)
[2017-08-31] MEDS: METOPROLOL TARTRATE 25 MG TABLET PO SCH ×2 (11:07→21:21)
[2017-08-31] MEDS: IRON (CARBONYL)/VIT C/B12/FA TABLET PO SCH (11:07)
[2017-08-31] MEDS: FUROSEMIDE 20 MG TABLET PO SCH (11:08)
[2017-08-31] MEDS: THEOPHYLLINE ER (24 HR) 400 MG TABLET PO SCH ×2 (11:08→21:21)
[2017-08-31] MEDS: FINASTERIDE 5 MG TABLET PO SCH (11:15)
[2017-08-31] MEDS: PHENAZOPYRIDINE 95 MG TABLET PO SCH ×2 (12:07→18:10)
[2017-08-31] MEDS: LEVOFLOXACIN INJ 750 MG in PREMIX 1 EACH IV SCH (12:24)
[2017-08-31] MEDS ORDERED: ENOXAPARIN 30 MG/0.3 ML SYRINGE SUBCUT SCH (15:30)
[2017-08-31] MEDS ORDERED: LOVASTATIN 20 MG TABLET PO SCH (17:00)
[2017-08-31] MEDS: LOVASTATIN 20 MG TABLET PO SCH (18:11)
[2017-09-01] MEDS: ALBUTEROL/IPRATROPIUM 3 ML NEB RESP TX SCH ×2 (00:53→07:47)
[2017-09-01] MEDS: methylPREDNISolone SOD SUC 40 MG/1 ML VIAL IV SCH ×2 (02:50→11:55)
[2017-09-01] MEDS: POTASSIUM CHLORIDE 8 MEQ CAPSULE PO SCH (10:09)
[2017-09-01] MEDS: FINASTERIDE 5 MG TABLET PO SCH (10:09)
[2017-09-01] MEDS: QUINAPRIL 20 MG TABLET PO SCH (10:09)
[2017-09-01] MEDS: FUROSEMIDE 20 MG TABLET PO SCH (10:09)
[2017-09-01] MEDS: IRON (CARBONYL)/VIT C/B12/FA TABLET PO SCH (10:09)
[2017-09-01] MEDS: ASPIRIN EC 81 MG TABLET PO SCH (10:09)
[2017-09-01] MEDS: LACTATED RINGERS 1,000 ML IV SCH (10:10)
[2017-09-01] MEDS: METOPROLOL TARTRATE 25 MG TABLET PO SCH (10:10)
[2017-09-01] MEDS: TAMSULOSIN 0.4 MG CAPSULE PO SCH (10:10)
[2017-09-01] MEDS: PHENAZOPYRIDINE 95 MG TABLET PO SCH (10:10)
[2017-09-01] MEDS: THEOPHYLLINE ER (24 HR) 400 MG TABLET PO SCH (10:10)
[2017-09-01 11:13] VITALS: BP 136/70
[2017-09-01] MEDS: LEVOFLOXACIN INJ 750 MG in PREMIX 1 EACH IV SCH (11:55)
== END 2017-09-01 14:40 | disposition home or self-care (01) | DRG 988 ==
LOC: N.ED 08:57 → N.EDINP 11:48 → SUATTDRO 11:48 → N.TELEN 12:44
PROVIDERS: ADMIT Internal Medicine Infectious Disease; ATTEND Internal Medicine Geriatric Medicine

== ENCOUNTER 2017-09-27 09:25 | Inpatient (IN) ==
[2017-09-27] MEDS ORDERED: methylPREDNISolone SOD SUC 125 MG/2 ML VIAL IV STA (10:14)
[2017-09-27] MEDS ORDERED: cefTRIAXone 1,000 MG in SODIUM CHLORIDE 0.9% 100 ML IV STA (10:14)
[2017-09-27] MEDS ORDERED: FUROSEMIDE 100 MG/10 ML VIAL IV STA (10:14)
[2017-09-27] MEDS ORDERED: MORPHINE 2 MG/1 ML SYRINGE IV STA (10:14)
[2017-09-27] MEDS ORDERED: ONDANSETRON 4 MG/2 ML VIAL IV STA (10:14)
[2017-09-27] MEDS ORDERED: ASPIRIN 325 MG TABLET PO STA (10:14)
[2017-09-27] MEDS ORDERED: ASPIRIN 325 MG TABLET ONE (10:25)
[2017-09-27] MEDS ORDERED: cefTRIAXone 1,000 MG VIAL ONE (10:25)
[2017-09-27] MEDS ORDERED: FUROSEMIDE 20 MG/2 ML VIAL ONE (10:25)
[2017-09-27] MEDS ORDERED: ONDANSETRON 4 MG/2 ML VIAL ONE (10:25)
[2017-09-27] MEDS ORDERED: FUROSEMIDE 40 MG/4 ML VIAL ONE (10:25)
[2017-09-27] MEDS ORDERED: MORPHINE 2 MG/1 ML SYRINGE ONE (10:25)
[2017-09-27] MEDS ORDERED: methylPREDNISolone SOD SUC 125 MG/2 ML VIAL ONE (10:25)
[2017-09-27] MEDS ORDERED: ALBUTEROL 2.5 MG/3 ML NEB RESP TX SCH (10:30)
[2017-09-27 11:22] LABS: Basophils % 0.4 % (0.0-0.8); Eosinophils # 0.2 10*3/uL (0.0-0.87); Eosinophils % 1.7 % (0.00-10.9); Hematocrit 46.5 VOL% (42.0-52.0); Hemoglobin 15.9 GM/DL (14.0-18.0); Immature Granulocytes % 0.5 %; Immature Granulocytes Absolute 0.06 #; Lymphocytes # 0.7 10*3/uL (1.4-4.0); Lymphocytes % 6.1 % (21.2-54.2); Mean Corpuscular HGB Conc 34.2 GM/DL (32-36); Mean Corpuscular Hemoglobin 28 PG (27-34); Mean Corpuscular Volume 81.3 FL (87-102); Mean Platelet Volume 8.7 FL (9.6-12.0); Monocytes # 0.6 10*3/uL (0.11-0.8); Monocytes % 5.6 % (1.7-12.7); Neutrophils # 9.7 10*3/uL (1.4-7.4); Neutrophils % 85.7 % (38.7-73.9); Platelet Count 235 T/CUMM (130-400); Red Blood Count 5.72 MC/CUMM (3.8-5.5); Red Cell Distribution Width 16.3 % (9.3-17.3); White Blood Count 11.3 T/CUMM (4-12)
[2017-09-27 11:32] LABS: INR 1.1; PT Patient Result 11.4 SECS
[2017-09-27 11:47] LABS: Alanine Aminotransferase 11 U/L (16-61); Albumin 3.5 G/DL (3.4-5.0); Alkaline Phosphatase 92 U/L (45-117); Aspartate Amino Transferase 15 U/L (0-37); Blood Urea Nitrogen 13 MG/DL (7-18); Glucose 96 MG/DL (74-106); Osmolality,Calculated 280.3 MOS/KG (273-304); Potassium 4.3 MMOL/L (3.5-5.1); Sodium 141 MMOL/L (136-145); Total Protein 6.8 G/DL (6.4-8.3); Troponin I Only < 0.015 NG/ML (0.00-0.045)
[2017-09-27] MEDS ORDERED: DOCUSATE SODIUM 100 MG CAPSULE PO PRN (12:49)
[2017-09-27] MEDS ORDERED: ONDANSETRON 4 MG/2 ML VIAL IV PRN (12:49)
[2017-09-27] MEDS ORDERED: ACETAMINOPHEN 325 MG TABLET PO PRN (12:49)
[2017-09-27] MEDS ORDERED: ALBUTEROL 1.25 MG/3 ML NEB RESP TX PRN (13:14)
[2017-09-27] MEDS: LEVOFLOXACIN INJ 750 MG in PREMIX 1 EACH IV SCH (16:41)
[2017-09-27] MEDS: NICOTINE 7 MG/24 HR PATCH TRANSDERM SCH (16:41)
[2017-09-27] MEDS: ALBUTEROL/IPRATROPIUM 3 ML NEB RESP TX SCH (20:05)
[2017-09-27] MEDS ORDERED: methylPREDNISolone SOD SUC 40 MG/1 ML VIAL IV SCH (22:00)
[2017-09-27] MEDS: methylPREDNISolone SOD SUC 40 MG/1 ML VIAL IV SCH (22:12)
[2017-09-28] MEDS: ALBUTEROL/IPRATROPIUM 3 ML NEB RESP TX SCH ×4 (00:39→19:03)
[2017-09-28] MEDS: methylPREDNISolone SOD SUC 40 MG/1 ML VIAL IV SCH ×3 (05:18→20:54)
[2017-09-28] MEDS: NICOTINE 7 MG/24 HR PATCH TRANSDERM SCH (08:40)
[2017-09-28] MEDS: FUROSEMIDE 40 MG/4 ML VIAL IV SCH (08:40)
[2017-09-28] MEDS: PANTOPRAZOLE 40 MG TABLET PO SCH (08:40)
[2017-09-28] MEDS: LEVOFLOXACIN INJ 750 MG in PREMIX 1 EACH IV SCH (20:54)
[2017-09-29] MEDS: ALBUTEROL/IPRATROPIUM 3 ML NEB RESP TX SCH ×4 (00:39→20:19)
[2017-09-29] MEDS: methylPREDNISolone SOD SUC 40 MG/1 ML VIAL IV SCH ×2 (04:33→18:30)
[2017-09-29 05:21] LABS: Basophils % 0.1 % (0.0-0.8); Hematocrit 40.3 VOL% (42.0-52.0); Hemoglobin 13.2 GM/DL (14.0-18.0); Immature Granulocytes % 3.1 %; Immature Granulocytes Absolute 0.45 #; Lymphocytes # 0.5 10*3/uL (1.4-4.0); Lymphocytes % 3.5 % (21.2-54.2); Mean Corpuscular HGB Conc 32.8 GM/DL (32-36); Mean Corpuscular Hemoglobin 27 PG (27-34); Mean Corpuscular Volume 82.9 FL (87-102); Mean Platelet Volume 9.8 FL (9.6-12.0); Monocytes # 0.6 10*3/uL (0.11-0.8); Monocytes % 3.7 % (1.7-12.7); Neutrophils # 13.2 10*3/uL (1.4-7.4); Neutrophils % 89.6 % (38.7-73.9); Platelet Count 255 T/CUMM (130-400); Red Blood Count 4.86 MC/CUMM (3.8-5.5); Red Cell Distribution Width 15.3 % (9.3-17.3); White Blood Count 14.7 T/CUMM (4-12)
[2017-09-29 05:51] LABS: Calcium 8.5 MG/DL (8.5-10.1); Osmolality,Calculated 293.3 MOS/KG (273-304); Potassium 4.5 MMOL/L (3.5-5.1)
[2017-09-29 05:53] LABS: Band Neutrophils 1 % (0-10); Hypochromasia 1+; Lymphocytes 3 % (20-55); Microcytosis 1+; Ovalocytes Slight; Platelet Estimate Normal; Segmented Neutrophils 91 % (50-85); Total Cells Counted 100
[2017-09-29] MEDS: FUROSEMIDE 40 MG/4 ML VIAL IV SCH (09:17)
[2017-09-29] MEDS: NICOTINE 7 MG/24 HR PATCH TRANSDERM SCH (09:17)
[2017-09-29] MEDS: PANTOPRAZOLE 40 MG TABLET PO SCH (09:17)
[2017-09-29] MEDS: LEVOFLOXACIN 750 MG TABLET PO SCH (11:13)
[2017-09-30] MEDS: ALBUTEROL/IPRATROPIUM 3 ML NEB RESP TX SCH ×2 (00:12→07:01)
[2017-09-30] MEDS: methylPREDNISolone SOD SUC 40 MG/1 ML VIAL IV SCH (06:43)
[2017-09-30 08:04] VITALS: BP 127/66
[2017-09-30] MEDS: LEVOFLOXACIN 750 MG TABLET PO SCH (09:01)
[2017-09-30] MEDS: FUROSEMIDE 40 MG/4 ML VIAL IV SCH ×2 (09:01→09:02)
[2017-09-30] MEDS: PANTOPRAZOLE 40 MG TABLET PO SCH (09:01)
[2017-09-30] MEDS: NICOTINE 7 MG/24 HR PATCH TRANSDERM SCH (09:01)
== END 2017-09-30 10:34 | disposition home or self-care (01) | DRG 192 ==
LOC: N.ED 09:25 → N.EDINP 12:02 → SUATTDRO 12:02 → N.2E 14:33
PROVIDERS: ADMIT Internal Medicine Infectious Disease; ATTEND Internal Medicine Infectious Disease

== ENCOUNTER 2018-01-02 23:15 | Inpatient (IN) ==
[2018-01-03] MEDS ORDERED: ALBUTEROL/IPRATROPIUM 3 ML NEB RESP TX STA (00:54)
[2018-01-03 01:38] LABS: Basophils # 0.1 10*3/uL (0.0-0.2); Basophils % 0.7 % (0.0-0.8); Eosinophils # 0.2 10*3/uL (0.0-0.87); Eosinophils % 2.8 % (0.00-10.9); Hematocrit 47.4 VOL% (42.0-52.0); Hemoglobin 15.7 GM/DL (14.0-18.0); Immature Granulocytes % 0.3 %; Immature Granulocytes Absolute 0.02 #; Lymphocytes # 1.3 10*3/uL (1.4-4.0); Lymphocytes % 18.8 % (21.2-54.2); Mean Corpuscular HGB Conc 33.1 GM/DL (32-36); Mean Corpuscular Hemoglobin 27 PG (27-34); Mean Corpuscular Volume 81.6 FL (87-102); Mean Platelet Volume 9.7 FL (9.6-12.0); Monocytes # 0.5 10*3/uL (0.11-0.8); Monocytes % 7.1 % (1.7-12.7); Neutrophils # 4.9 10*3/uL (1.4-7.4); Neutrophils % 70.3 % (38.7-73.9); Platelet Count 237 T/CUMM (130-400); Red Blood Count 5.81 MC/CUMM (3.8-5.5); Red Cell Distribution Width 14.6 % (9.3-17.3)
[2018-01-03] MEDS ORDERED: predniSONE 20 MG TABLET PO STA (02:25)
[2018-01-03 02:34] LABS: Calcium 9.5 MG/DL (8.5-10.1); Osmolality,Calculated 280.4 MOS/KG (273-304); Potassium 4.1 MMOL/L (3.5-5.1)
[2018-01-03] MEDS ORDERED: PROMETHAZINE 25 MG TABLET PO PRN (06:16)
[2018-01-03] MEDS ORDERED: ALBUTEROL/IPRATROPIUM 3 ML NEB RESP TX PRN (06:16)
[2018-01-03] MEDS ORDERED: MORPHINE 4 MG/1 ML VIAL IV PRN (06:16)
[2018-01-03] MEDS ORDERED: methylPREDNISolone SOD SUC 40 MG/1 ML VIAL IV SCH (06:16)
[2018-01-03] MEDS: ALBUTEROL/IPRATROPIUM 3 ML NEB RESP TX SCH ×3 (07:47→19:13)
[2018-01-03] MEDS: QUINAPRIL 20 MG TABLET PO SCH (10:36)
[2018-01-03] MEDS: predniSONE 10 MG TABLET PO SCH (10:36)
[2018-01-03] MEDS: POTASSIUM CHLORIDE 8 MEQ CAPSULE PO SCH (10:36)
[2018-01-03] MEDS: DOCUSATE SODIUM 100 MG CAPSULE PO SCH ×2 (10:39→20:53)
[2018-01-03] MEDS: IRON (CARBONYL)/VIT C/B12/FA TABLET PO SCH (10:40)
[2018-01-03] MEDS: PANTOPRAZOLE 40 MG TABLET PO SCH (10:40)
[2018-01-03] MEDS: TAMSULOSIN 0.4 MG CAPSULE PO SCH (10:40)
[2018-01-03] MEDS: ENOXAPARIN 40 MG/0.4 ML SYRINGE SUBCUT SCH (10:41)
[2018-01-03] MEDS: FINASTERIDE 5 MG TABLET PO SCH (10:41)
[2018-01-03] MEDS: FUROSEMIDE 20 MG TABLET PO SCH (10:41)
[2018-01-03] MEDS: THEOPHYLLINE ER (24 HR) 200 MG CAPSULE PO SCH ×2 (12:32→19:20)
[2018-01-03] MEDS ORDERED: LOVASTATIN 20 MG TABLET PO SCH (17:00)
[2018-01-04] MEDS: ALBUTEROL/IPRATROPIUM 3 ML NEB RESP TX SCH ×2 (00:28→07:21)
[2018-01-04 07:39] VITALS: BP 137/70
[2018-01-04] MEDS ORDERED: predniSONE 20 MG TABLET ONE (09:49)
[2018-01-04] MEDS: IRON (CARBONYL)/VIT C/B12/FA TABLET PO SCH (10:14)
[2018-01-04] MEDS: POTASSIUM CHLORIDE 8 MEQ CAPSULE PO SCH (10:14)
[2018-01-04] MEDS: TAMSULOSIN 0.4 MG CAPSULE PO SCH (10:14)
[2018-01-04] MEDS: THEOPHYLLINE ER (24 HR) 200 MG CAPSULE PO SCH (10:14)
[2018-01-04] MEDS: FINASTERIDE 5 MG TABLET PO SCH (10:15)
[2018-01-04] MEDS: QUINAPRIL 20 MG TABLET PO SCH (10:15)
[2018-01-04] MEDS: PANTOPRAZOLE 40 MG TABLET PO SCH (10:16)
[2018-01-04] MEDS: FUROSEMIDE 20 MG TABLET PO SCH (10:16)
[2018-01-04] MEDS: ENOXAPARIN 40 MG/0.4 ML SYRINGE SUBCUT SCH (10:17)
[2018-01-04] MEDS: DOCUSATE SODIUM 100 MG CAPSULE PO SCH (10:17)
[2018-01-04] MEDS: predniSONE 10 MG TABLET PO SCH (10:18)
== END 2018-01-04 10:42 | disposition home or self-care (01) | DRG 192 ==
LOC: N.ED 23:15 → N.EDINP 01-03 04:40 → SUATTDRO 01-03 04:40 → N.TELES 01-03 05:30
PROVIDERS: ADMIT Internal Medicine Infectious Disease; ATTEND Internal Medicine Geriatric Medicine

== ENCOUNTER 2018-01-30 18:44 | Inpatient (IN) ==
[2018-01-30] MEDS ORDERED: ALBUTEROL/IPRATROPIUM 3 ML NEB RESP TX STA (20:02)
[2018-01-30] MEDS ORDERED: cefTRIAXone 1,000 MG in SODIUM CHLORIDE 0.9% 100 ML IV STA (20:02)
[2018-01-30] MEDS ORDERED: SODIUM CHLORIDE 0.9% 500 ML IV STA (20:02)
[2018-01-30] MEDS ORDERED: ACETAMINOPHEN 500 MG TABLET PO STA (20:02)
[2018-01-30 20:56] LABS: Basophils % 0.2 % (0.0-0.8); Eosinophils % 0.3 % (0.00-10.9); Hematocrit 44.4 VOL% (42.0-52.0); Hemoglobin 14.6 GM/DL (14.0-18.0); Immature Granulocytes % 0.7 %; Immature Granulocytes Absolute 0.07 #; Lymphocytes # 0.5 10*3/uL (1.4-4.0); Lymphocytes % 4.7 % (21.2-54.2); Mean Corpuscular HGB Conc 32.9 GM/DL (32-36); Mean Corpuscular Hemoglobin 27 PG (27-34); Mean Corpuscular Volume 81.8 FL (87-102); Mean Platelet Volume 9.5 FL (9.6-12.0); Monocytes # 0.4 10*3/uL (0.11-0.8); Monocytes % 4.1 % (1.7-12.7); Neutrophils # 9.3 10*3/uL (1.4-7.4); Platelet Count 272 T/CUMM (130-400); Red Blood Count 5.43 MC/CUMM (3.8-5.5); Red Cell Distribution Width 14.6 % (9.3-17.3); White Blood Count 10.3 T/CUMM (4-12)
[2018-01-30 21:03] LABS: PT Patient Result 10.9 SECS
[2018-01-30 21:17] LABS: Albumin 3.1 G/DL (3.4-5.0); Bilirubin,Total 0.5 MG/DL (0.2-1.0); Calcium 9.5 MG/DL (8.5-10.1); Osmolality,Calculated 277.4 MOS/KG (273-304); Potassium 4.2 MMOL/L (3.5-5.1); Total Protein 8.1 G/DL (6.4-8.3)
[2018-01-30 21:18] LABS: Lactic Acid 1.6 MMOL/L (0.4-2.0)
[2018-01-30 21:28] LABS: Hypochromasia Slight; Macrocytosis Slight
[2018-01-30 21:29] LABS: Platelet Estimate Adequate
[2018-01-30 22:46] LABS: Amorphous Crystals,Urine Occasional /HPF (Few); Apearance,Urine CLOUDY (Clear); Bilirubin,Urine Negative (Negative); Blood, Urine Large mg/dL (Negative); Glucose,Urine (UA) Negative (Negative); Ketones,Urine 20 mg/dL (Negative); Nitrite,Urine Negative (Negative); Protein,Urine 100 MG/DL; RBC,Urine 273 /HPF (0-4); Squamous Epithelial Cell,Urine Occasional /HPF (0-10); Urine Color Yellow (Yellow); Urine Specific Gravity 1.011 (1.001-1.035); Urine Urobilinogen < 2.0 EU/DL (0.2-1.0); WBC,Urine 55 /HPF (0-6)
[2018-01-31] MEDS ORDERED: IBUPROFEN 800 MG TABLET PO STA (01:10)
[2018-01-31] MEDS ORDERED: ACETAMINOPHEN 325 MG TABLET PO PRN (03:15)
[2018-01-31] MEDS ORDERED: PROMETHAZINE 25 MG/1 ML VIAL IM PRN (03:15)
[2018-01-31] MEDS ORDERED: ONDANSETRON 4 MG/2 ML VIAL IV PRN (03:15)
[2018-01-31] MEDS ORDERED: ALBUTEROL/IPRATROPIUM 3 ML NEB RESP TX PRN (03:15)
[2018-01-31] MEDS: SODIUM CHLORIDE 0.9% 1,000 ML IV SCH (03:30)
[2018-01-31] MEDS: AZITHROMYCIN INJ 500 MG in SODIUM CHLORIDE 0.9% 250 ML IV SCH (03:30)
[2018-01-31] MEDS ORDERED: ENOXAPARIN 40 MG/0.4 ML SYRINGE ONE (03:38)
[2018-01-31] MEDS ORDERED: AZITHROMYCIN 500 MG VIAL IV ONE (03:39)
[2018-01-31] MEDS: ALBUTEROL/IPRATROPIUM 3 ML NEB RESP TX SCH ×3 (06:09→19:44)
[2018-01-31] MEDS ORDERED: DOCUSATE SODIUM 100 MG CAPSULE ONE (07:38)
[2018-01-31] MEDS ORDERED: FUROSEMIDE 20 MG TABLET ONE (07:38)
[2018-01-31] MEDS ORDERED: TAMSULOSIN 0.4 MG CAPSULE PO ONE (07:39)
[2018-01-31] MEDS ORDERED: PANTOPRAZOLE 40 MG TABLET PO ONE (07:39)
[2018-01-31] MEDS ORDERED: cefTRIAXone 1,000 MG VIAL ONE (07:39)
[2018-01-31] MEDS ORDERED: THEOPHYLLINE ER (24 HR) 400 MG TABLET PO SCH (08:00)
[2018-01-31] MEDS: THEOPHYLLINE ER (24 HR) 200 MG CAPSULE PO SCH ×2 (08:30→17:02)
[2018-01-31] MEDS ORDERED: ALUM/MAG/SIMETH/LIDO VISC 1:1 30 ML BOTTLE PO ONE (08:47)
[2018-01-31] MEDS: cefTRIAXone 1,000 MG in SYRINGE 1 EACH IV SCH ×2 (08:55→21:03)
[2018-01-31] MEDS: QUINAPRIL 20 MG TABLET PO SCH (08:56)
[2018-01-31] MEDS: IRON (CARBONYL)/VIT C/B12/FA TABLET PO SCH (08:56)
[2018-01-31] MEDS: POTASSIUM CHLORIDE 8 MEQ CAPSULE PO SCH (08:56)
[2018-01-31] MEDS: FINASTERIDE 5 MG TABLET PO SCH (08:57)
[2018-01-31] MEDS: DOCUSATE SODIUM 100 MG CAPSULE PO SCH ×2 (08:57→21:01)
[2018-01-31] MEDS: PANTOPRAZOLE 40 MG TABLET PO SCH (08:57)
[2018-01-31] MEDS: TAMSULOSIN 0.4 MG CAPSULE PO SCH ×2 (08:57→21:01)
[2018-01-31] MEDS: FUROSEMIDE 20 MG TABLET PO SCH (08:58)
[2018-01-31] MEDS ORDERED: ENOXAPARIN 40 MG/0.4 ML SYRINGE SUBCUT SCH (09:00)
[2018-01-31] MEDS ORDERED: NON-FORMULARY MEDICATION (Tiotropium Br/Olodaterol Hcl [Stiolto Respimat Inhal Spray] 2 PU INH SCH (16:00)
[2018-01-31] MEDS ORDERED: LOVASTATIN 20 MG TABLET PO SCH (17:00)
[2018-01-31] MEDS ORDERED: FLUTICASONE/SALMETEROL 250-50 DISKUS 14 DOSE INH SCH (21:00)
[2018-02-01] MEDS: SODIUM CHLORIDE 0.9% 1,000 ML IV SCH ×3 (00:51→07:42)
[2018-02-01] MEDS: ALBUTEROL/IPRATROPIUM 3 ML NEB RESP TX SCH ×3 (00:54→12:30)
[2018-02-01] MEDS: AZITHROMYCIN INJ 500 MG in SODIUM CHLORIDE 0.9% 250 ML IV SCH (03:46)
[2018-02-01 05:55] LABS: Basophils % 0.3 % (0.0-0.8); Eosinophils # 0.1 10*3/uL (0.0-0.87); Eosinophils % 0.6 % (0.00-10.9); Hematocrit 34.2 VOL% (42.0-52.0); Immature Granulocytes % 0.8 %; Immature Granulocytes Absolute 0.09 #; Lymphocytes # 0.6 10*3/uL (1.4-4.0); Lymphocytes % 4.9 % (21.2-54.2); Mean Corpuscular HGB Conc 33.6 GM/DL (32-36); Mean Corpuscular Hemoglobin 27 PG (27-34); Mean Corpuscular Volume 79.2 FL (87-102); Mean Platelet Volume 9.7 FL (9.6-12.0); Monocytes # 0.7 10*3/uL (0.11-0.8); Monocytes % 5.6 % (1.7-12.7); Neutrophils # 10.5 10*3/uL (1.4-7.4); Neutrophils % 87.8 % (38.7-73.9); Platelet Count 246 T/CUMM (130-400); Red Cell Distribution Width 14.7 % (9.3-17.3); White Blood Count 11.9 T/CUMM (4-12)
[2018-02-01 06:23] LABS: Hemoglobin 11.5 GM/DL (14.0-18.0); Red Blood Count 4.32 MC/CUMM (3.8-5.5)
[2018-02-01 06:26] LABS: Alanine Aminotransferase 16 U/L (16-61); Alkaline Phosphatase 82 U/L (45-117); Aspartate Amino Transferase 15 U/L (0-37); Bilirubin,Total < 0.39 MG/DL (0.2-1.0); Blood Urea Nitrogen 15 MG/DL (7-18); Glucose 120 MG/DL (74-106); Osmolality,Calculated 289.7 MOS/KG (273-304); Potassium 3.4 MMOL/L (3.5-5.1); Sodium 145 MMOL/L (136-145); Total Protein 5.6 G/DL (6.4-8.3)
[2018-02-01 06:35] LABS: Microcytosis 1+; Platelet Estimate Normal
[2018-02-01] MEDS: THEOPHYLLINE ER (24 HR) 200 MG CAPSULE PO SCH (09:22)
[2018-02-01] MEDS: DOCUSATE SODIUM 100 MG CAPSULE PO SCH (09:23)
[2018-02-01] MEDS: FINASTERIDE 5 MG TABLET PO SCH (09:23)
[2018-02-01] MEDS: FUROSEMIDE 20 MG TABLET PO SCH (09:24)
[2018-02-01] MEDS: IRON (CARBONYL)/VIT C/B12/FA TABLET PO SCH (09:24)
[2018-02-01] MEDS: POTASSIUM CHLORIDE 8 MEQ CAPSULE PO SCH (09:24)
[2018-02-01] MEDS: PANTOPRAZOLE 40 MG TABLET PO SCH (09:25)
[2018-02-01] MEDS: QUINAPRIL 20 MG TABLET PO SCH (09:25)
[2018-02-01] MEDS: cefTRIAXone 1,000 MG in SYRINGE 1 EACH IV SCH (09:26)
[2018-02-01] MEDS ORDERED: POTASSIUM CHLORIDE 20 MEQ TABLET PO ONE (09:30)
[2018-02-01] MEDS: TAMSULOSIN 0.4 MG CAPSULE PO SCH (11:19)
[2018-02-01 11:38] VITALS: BP 106/59
== END 2018-02-01 13:50 | disposition home or self-care (01) | DRG 195 ==
LOC: N.ED 18:44 → N.EDINP 23:29 → N.3E 01-31 08:44
PROVIDERS: ADMIT Internal Medicine; ATTEND Internal Medicine

== ENCOUNTER 2018-02-21 16:31 | Inpatient (IN) ==
[2018-02-21 18:11] LABS: Basophils % 0.6 % (0.0-0.8); Eosinophils # 0.3 10*3/uL (0.0-0.87); Eosinophils % 4.2 % (0.00-10.9); Hematocrit 45.2 VOL% (42.0-52.0); Hemoglobin 14.9 GM/DL (14.0-18.0); Immature Granulocytes % 0.3 %; Immature Granulocytes Absolute 0.02 #; Lymphocytes % 15.1 % (21.2-54.2); Mean Corpuscular Hemoglobin 27 PG (27-34); Mean Corpuscular Volume 80.7 FL (87-102); Mean Platelet Volume 9.1 FL (9.6-12.0); Monocytes # 0.4 10*3/uL (0.11-0.8); Monocytes % 5.4 % (1.7-12.7); Neutrophils # 4.9 10*3/uL (1.4-7.4); Neutrophils % 74.4 % (38.7-73.9); Platelet Count 324 T/CUMM (130-400); Red Cell Distribution Width 15.8 % (9.3-17.3); White Blood Count 6.6 T/CUMM (4-12)
[2018-02-21 18:21] LABS: PT Patient Result 10.9 SECS; Partial Thromboplastin Time 31.5 SECS (0-40)
[2018-02-21 18:31] LABS: Alanine Aminotransferase 9 U/L (16-61); Albumin 3.2 G/DL (3.4-5.0); Alkaline Phosphatase 108 U/L (45-117); Aspartate Amino Transferase 12 U/L (0-37); Blood Urea Nitrogen 11 MG/DL (7-18); Calcium 9.8 MG/DL (8.5-10.1); Glucose 79 MG/DL (74-106); Osmolality,Calculated 280.1 MOS/KG (273-304); Sodium 142 MMOL/L (136-145); Total Protein 8.1 G/DL (6.4-8.3); Troponin I Only < 0.015 NG/ML (0.00-0.045)
[2018-02-21 19:17] LABS: Barbiturates Screen,Urine Negative (Negative); Benzodiazepines Screen,Urine Negative (Negative); Cannabinoid Screen,Urine Negative (Negative); Opiate Screen,Urine Negative (Negative); Phencyclidine Screen,Urine Negative (Negative)
[2018-02-21 19:20] LABS: Apearance,Urine Slightly Cloudy (Clear); Bilirubin,Urine Negative (Negative); Blood, Urine Large mg/dL (Negative); Glucose,Urine (UA) Negative (Negative); Ketones,Urine Negative (Negative); Mucus,Urine Occasional /LPF (Occasional); Nitrite,Urine Negative (Negative); Protein,Urine 30 MG/DL; RBC,Urine 101 /HPF (0-4); Squamous Epithelial Cell,Urine Occasional /HPF (0-10); Urine Color Yellow (Yellow); Urine Specific Gravity 1.038 (1.001-1.035); Urine Urobilinogen < 2.0 EU/DL (0.2-1.0); WBC,Urine 26 /HPF (0-6)
[2018-02-21 21:23] LABS: Risk Ratio 2.37
[2018-02-22 05:53] LABS: Basophils % 0.6 % (0.0-0.8); Eosinophils # 0.4 10*3/uL (0.0-0.87); Eosinophils % 5.6 % (0.00-10.9); Hematocrit 39.5 VOL% (42.0-52.0); Immature Granulocytes % 0.5 %; Immature Granulocytes Absolute 0.03 #; Lymphocytes # 0.9 10*3/uL (1.4-4.0); Lymphocytes % 13.8 % (21.2-54.2); Mean Corpuscular HGB Conc 32.9 GM/DL (32-36); Mean Corpuscular Hemoglobin 26 PG (27-34); Mean Corpuscular Volume 78.8 FL (87-102); Monocytes # 0.4 10*3/uL (0.11-0.8); Monocytes % 6.5 % (1.7-12.7); Neutrophils # 4.8 10*3/uL (1.4-7.4); Platelet Count 307 T/CUMM (130-400); Red Blood Count 5.01 MC/CUMM (3.8-5.5); Red Cell Distribution Width 15.6 % (9.3-17.3); White Blood Count 6.6 T/CUMM (4-12)
[2018-02-22 06:28] LABS: Albumin 2.7 G/DL (3.4-5.0); Bilirubin,Total 0.5 MG/DL (0.2-1.0); Calcium 9.1 MG/DL (8.5-10.1); Osmolality,Calculated 286.7 MOS/KG (273-304); Potassium 3.8 MMOL/L (3.5-5.1); Total Protein 6.7 G/DL (6.4-8.3)
[2018-02-23 11:14] VITALS: BP 111/65
== END 2018-02-23 13:08 | disposition home health service (06) | DRG 66 ==
LOC: N.ED 16:31 → SUATTDRO 19:33 → N.EDINP 19:33 → SUPCPDRO 19:33 → N.3E 22:08
PROVIDERS: ADMIT Internal Medicine; ATTEND Emergency Medicine

== ENCOUNTER 2018-05-30 13:48 | Inpatient (IN) ==
[2018-05-30] MEDS ORDERED: ALBUTEROL 2.5 MG/3 ML NEB RESP TX STA (14:29)
[2018-05-30] MEDS ORDERED: methylPREDNISolone SOD SUC 125 MG/2 ML VIAL IV STA (14:29)
[2018-05-30] MEDS ORDERED: SODIUM CHLORIDE 0.9% 1,000 ML IV STA (14:30)
[2018-05-30 14:57] LABS: Basophils % 0.4 % (0.0-0.8); Eosinophils % 0.6 % (0.00-10.9); Hematocrit 31.8 VOL% (42.0-52.0); Hemoglobin 10.4 GM/DL (14.0-18.0); Immature Granulocytes % 0.4 %; Immature Granulocytes Absolute 0.02 #; Lymphocytes # 0.7 10*3/uL (1.4-4.0); Lymphocytes % 14.9 % (21.2-54.2); Mean Corpuscular HGB Conc 32.7 GM/DL (32-36); Mean Corpuscular Hemoglobin 26 PG (27-34); Mean Corpuscular Volume 78.3 FL (87-102); Mean Platelet Volume 9.3 FL (9.6-12.0); Monocytes # 0.4 10*3/uL (0.11-0.8); Monocytes % 7.3 % (1.7-12.7); Neutrophils # 3.6 10*3/uL (1.4-7.4); Neutrophils % 76.4 % (38.7-73.9); Platelet Count 249 T/CUMM (130-400); Red Blood Count 4.06 MC/CUMM (3.8-5.5); Red Cell Distribution Width 16.8 % (9.3-17.3); White Blood Count 4.8 T/CUMM (4-12)
[2018-05-30 15:24] LABS: Albumin 3.1 G/DL (3.4-5.0); Bilirubin,Total 0.5 MG/DL (0.2-1.0); Calcium 7.7 MG/DL (8.5-10.1); Lactic Acid 2.3 MMOL/L (0.4-2.0); Osmolality,Calculated 287.8 MOS/KG (273-304); Potassium 2.9 MMOL/L (3.5-5.1); Total Protein 6.4 G/DL (6.4-8.3)
[2018-05-30 15:56] LABS: Amorphous Crystals,Urine Occasional /HPF (Few); Apearance,Urine CLEAR (Clear); Bacteria,Urine Moderate /HPF (Few); Bilirubin,Urine Negative (Negative); Blood, Urine Small mg/dL (Negative); Glucose,Urine (UA) Negative (Negative); Hyaline Casts,Urine 30 /LPF (0-3); Ketones,Urine Negative (Negative); Mucus,Urine Few /LPF (Occasional); Nitrite,Urine Positive (Negative); Protein,Urine 100 MG/DL; RBC,Urine 27 /HPF (0-4); Squamous Epithelial Cell,Urine Occasional /HPF (0-10); Urine Color Amber (Yellow); Urine Specific Gravity 1.011 (1.001-1.035); WBC,Urine 70 /HPF (0-6)
[2018-05-30] MEDS ORDERED: POTASSIUM CHLORIDE 20 MEQ TABLET PO STA (16:16)
[2018-05-30] MEDS ORDERED: ACETAMINOPHEN 325 MG TABLET PO PRN (18:24)
[2018-05-30] MEDS ORDERED: ONDANSETRON 4 MG/2 ML VIAL IV PRN ×2 (18:24→18:27)
[2018-05-30] MEDS ORDERED: ALBUTEROL 2.5 MG/3 ML NEB RESP TX PRN (18:27)
[2018-05-30] MEDS ORDERED: POTASSIUM CHLORIDE 20 MEQ PACK PO STA ×2 (18:42→19:36)
[2018-05-30] MEDS: DEXTROSE 5% NACL 0.9% 1,000 ML IV SCH (20:41)
[2018-05-30] MEDS ORDERED: DOCUSATE SODIUM 100 MG CAPSULE PO SCH ×2 (21:00)
[2018-05-31] MEDS: DEXTROSE 5% NACL 0.9% 1,000 ML IV SCH ×3 (04:46→21:32)
[2018-05-31 07:44] LABS: Basophils % 0.2 % (0.0-0.8); Hematocrit 32.8 VOL% (42.0-52.0); Hemoglobin 10.9 GM/DL (14.0-18.0); Immature Granulocytes % 0.7 %; Immature Granulocytes Absolute 0.04 #; Lymphocytes # 0.6 10*3/uL (1.4-4.0); Lymphocytes % 10.3 % (21.2-54.2); Mean Corpuscular HGB Conc 33.2 GM/DL (32-36); Mean Corpuscular Hemoglobin 26 PG (27-34); Mean Corpuscular Volume 78.7 FL (87-102); Mean Platelet Volume 8.5 FL (9.6-12.0); Monocytes # 0.3 10*3/uL (0.11-0.8); Monocytes % 5.6 % (1.7-12.7); Neutrophils # 4.5 10*3/uL (1.4-7.4); Neutrophils % 83.2 % (38.7-73.9); Platelet Count 252 T/CUMM (130-400); Red Blood Count 4.17 MC/CUMM (3.8-5.5); Red Cell Distribution Width 17.1 % (9.3-17.3); White Blood Count 5.4 T/CUMM (4-12)
[2018-05-31] MEDS ORDERED: FUROSEMIDE 20 MG TABLET PO PRN (07:44)
[2018-05-31] MEDS ORDERED: THEOPHYLLINE ER 200 MG TABLET PO SCH (08:00)
[2018-05-31] MEDS ORDERED: methylPREDNISolone SOD SUC 125 MG/2 ML VIAL IV SCH (08:00)
[2018-05-31 08:09] LABS: Calcium 8.2 MG/DL (8.5-10.1); Potassium 4.9 MMOL/L (3.5-5.1)
[2018-05-31] MEDS ORDERED: Tiotropium Br/Olodaterol Hcl [Stiolto Respimat Inhal Spray] 2 PU INH SCH (09:00)
[2018-05-31] MEDS ORDERED: PANTOPRAZOLE 40 MG TABLET PO SCH (09:00)
[2018-05-31] MEDS: THEOPHYLLINE ER (24 HR) 400 MG CAPSULE PO SCH (09:57)
[2018-05-31] MEDS: IRON (CARBONYL)/VIT C/B12/FA TABLET PO SCH (09:57)
[2018-05-31] MEDS: QUINAPRIL 20 MG TABLET PO SCH (09:57)
[2018-05-31] MEDS: TAMSULOSIN 0.4 MG CAPSULE PO SCH ×2 (09:57→20:38)
[2018-05-31] MEDS: ASPIRIN EC 81 MG TABLET PO SCH (09:57)
[2018-05-31] MEDS: PANTOPRAZOLE 40 MG TABLET PO SCH (09:57)
[2018-05-31] MEDS: DOCUSATE SODIUM 100 MG CAPSULE PO SCH ×2 (09:57→20:38)
[2018-05-31] MEDS: FINASTERIDE 5 MG TABLET PO SCH (09:57)
[2018-05-31] MEDS: methylPREDNISolone SOD SUC 40 MG/1 ML VIAL IV SCH (16:48)
[2018-05-31] MEDS ORDERED: LOVASTATIN 20 MG TABLET PO SCH (17:00)
[2018-05-31] MEDS: ALBUTEROL/IPRATROPIUM 3 ML NEB RESP TX SCH (19:10)
[2018-06-01] MEDS: methylPREDNISolone SOD SUC 40 MG/1 ML VIAL IV SCH ×3 (00:03→16:57)
[2018-06-01] MEDS: ALBUTEROL/IPRATROPIUM 3 ML NEB RESP TX SCH ×4 (00:41→19:32)
[2018-06-01] MEDS: DEXTROSE 5% NACL 0.9% 1,000 ML IV SCH (05:45)
[2018-06-01 07:31] LABS: Basophils % 0.1 % (0.0-0.8); Hematocrit 31.8 VOL% (42.0-52.0); Hemoglobin 10.2 GM/DL (14.0-18.0); Immature Granulocytes % 1.4 %; Immature Granulocytes Absolute 0.11 #; Lymphocytes # 0.7 10*3/uL (1.4-4.0); Lymphocytes % 8.8 % (21.2-54.2); Mean Corpuscular HGB Conc 32.1 GM/DL (32-36); Mean Corpuscular Hemoglobin 26 PG (27-34); Mean Corpuscular Volume 79.9 FL (87-102); Monocytes # 0.4 10*3/uL (0.11-0.8); Monocytes % 5.1 % (1.7-12.7); Neutrophils # 6.7 10*3/uL (1.4-7.4); Neutrophils % 84.6 % (38.7-73.9); Platelet Count 229 T/CUMM (130-400); Red Blood Count 3.98 MC/CUMM (3.8-5.5); Red Cell Distribution Width 17.6 % (9.3-17.3); White Blood Count 7.9 T/CUMM (4-12)
[2018-06-01 07:55] LABS: Calcium 8.6 MG/DL (8.5-10.1); Osmolality,Calculated 296.6 MOS/KG (273-304); Potassium 4.3 MMOL/L (3.5-5.1)
[2018-06-01] MEDS: QUINAPRIL 20 MG TABLET PO SCH (09:54)
[2018-06-01] MEDS: DOCUSATE SODIUM 100 MG CAPSULE PO SCH ×2 (09:55→20:54)
[2018-06-01] MEDS: TAMSULOSIN 0.4 MG CAPSULE PO SCH ×2 (09:55→20:54)
[2018-06-01] MEDS: PANTOPRAZOLE 40 MG TABLET PO SCH (09:55)
[2018-06-01] MEDS: IRON (CARBONYL)/VIT C/B12/FA TABLET PO SCH (09:55)
[2018-06-01] MEDS: FINASTERIDE 5 MG TABLET PO SCH (09:55)
[2018-06-01] MEDS: THEOPHYLLINE ER (24 HR) 400 MG CAPSULE PO SCH (09:55)
[2018-06-01] MEDS: DOXYCYCLINE HYCLATE 100 MG CAPSULE PO SCH ×2 (09:55→20:54)
[2018-06-01] MEDS: ASPIRIN EC 81 MG TABLET PO SCH (09:55)
[2018-06-01] MEDS ORDERED: MAGNESIUM SULFATE 1 GM/2 ML VIAL IM ONE (16:28)
[2018-06-01] MEDS ORDERED: MAGNESIUM SULF RIDER 2 GM in PREMIX 1 EACH IV ONE (16:39)
[2018-06-01] MEDS ORDERED: LOVASTATIN 20 MG TABLET PO SCH (17:00)
[2018-06-02] MEDS: ALBUTEROL/IPRATROPIUM 3 ML NEB RESP TX SCH ×3 (00:15→14:14)
[2018-06-02] MEDS: methylPREDNISolone SOD SUC 40 MG/1 ML VIAL IV SCH ×2 (00:19→08:48)
[2018-06-02] MEDS: DEXTROSE 5% NACL 0.9% 1,000 ML IV SCH (01:28)
[2018-06-02 05:30] LABS: Hematocrit 28.5 VOL% (42.0-52.0); Hemoglobin 9.3 GM/DL (14.0-18.0); Immature Granulocytes % 2.3 %; Immature Granulocytes Absolute 0.17 #; Lymphocytes # 0.5 10*3/uL (1.4-4.0); Lymphocytes % 7.2 % (21.2-54.2); Mean Corpuscular HGB Conc 32.6 GM/DL (32-36); Mean Corpuscular Hemoglobin 25 PG (27-34); Mean Corpuscular Volume 77.4 FL (87-102); Mean Platelet Volume 9.1 FL (9.6-12.0); Monocytes # 0.3 10*3/uL (0.11-0.8); Monocytes % 3.9 % (1.7-12.7); Neutrophils # 6.5 10*3/uL (1.4-7.4); Neutrophils % 86.6 % (38.7-73.9); Platelet Count 226 T/CUMM (130-400); Red Blood Count 3.68 MC/CUMM (3.8-5.5); Red Cell Distribution Width 17.7 % (9.3-17.3); White Blood Count 7.5 T/CUMM (4-12)
[2018-06-02 05:49] LABS: Calcium 8.3 MG/DL (8.5-10.1); Osmolality,Calculated 292.8 MOS/KG (273-304); Potassium 4.3 MMOL/L (3.5-5.1)
[2018-06-02] MEDS: FINASTERIDE 5 MG TABLET PO SCH (08:47)
[2018-06-02] MEDS: DOCUSATE SODIUM 100 MG CAPSULE PO SCH (08:47)
[2018-06-02] MEDS: PANTOPRAZOLE 40 MG TABLET PO SCH (08:47)
[2018-06-02] MEDS: QUINAPRIL 20 MG TABLET PO SCH (08:47)
[2018-06-02] MEDS: THEOPHYLLINE ER (24 HR) 400 MG CAPSULE PO SCH (08:47)
[2018-06-02] MEDS: TAMSULOSIN 0.4 MG CAPSULE PO SCH (08:48)
[2018-06-02] MEDS: DOXYCYCLINE HYCLATE 100 MG CAPSULE PO SCH (08:48)
[2018-06-02] MEDS: IRON (CARBONYL)/VIT C/B12/FA TABLET PO SCH (08:48)
[2018-06-02] MEDS: ASPIRIN EC 81 MG TABLET PO SCH (08:49)
[2018-06-02 11:08] VITALS: BP 118/55
== END 2018-06-02 15:19 | disposition home or self-care (01) | DRG 191 ==
LOC: N.ED 13:48 → N.EDINP 18:24 → N.5E 19:22
PROVIDERS: ADMIT Family Medicine; ATTEND Family Medicine

== ENCOUNTER 2018-07-13 18:50 | Inpatient (IN) ==
[2018-07-13] MEDS ORDERED: ONDANSETRON 4 MG/2 ML VIAL IV STA (20:15)
[2018-07-13] MEDS ORDERED: ONDANSETRON ODT 4 MG TABLET PO STA (20:15)
[2018-07-13] MEDS ORDERED: MORPHINE 4 MG/1 ML VIAL IV STA (20:15)
[2018-07-13] MEDS ORDERED: SODIUM CHLORIDE 0.9% 500 ML IV STA (20:15)
[2018-07-13 21:33] LABS: Apearance,Urine CLOUDY (Clear); Bacteria,Urine Many /HPF (Few); Bilirubin,Urine Negative (Negative); Blood, Urine Large mg/dL (Negative); Glucose,Urine (UA) Negative (Negative); Ketones,Urine Negative (Negative); Mucus,Urine Occasional /LPF (Occasional); Nitrite,Urine Negative (Negative); Protein,Urine 30 MG/DL; RBC,Urine 346 /HPF (0-4); Squamous Epithelial Cell,Urine Occasional /HPF (0-10); Urine Color Yellow (Yellow); Urine Urobilinogen < 2.0 EU/DL (0.2-1.0); WBC,Urine 54 /HPF (0-6)
[2018-07-13] MEDS ORDERED: SODIUM CHLORIDE 0.9% 1,000 ML IV STA (21:48)
[2018-07-13] MEDS ORDERED: cefTRIAXone 1,000 MG in SODIUM CHLORIDE 0.9% 100 ML IV STA ×2 (21:55→22:58)
[2018-07-13 22:13] LABS: Basophils % 0.1 % (0.0-0.8); Hematocrit 36.5 VOL% (42.0-52.0); Hemoglobin 11.8 GM/DL (14.0-18.0); Immature Granulocytes Absolute 0.34 #; Lymphocytes # 0.6 10*3/uL (1.4-4.0); Lymphocytes % 3.4 % (21.2-54.2); Mean Corpuscular HGB Conc 32.3 GM/DL (32-36); Mean Corpuscular Hemoglobin 27 PG (27-34); Mean Corpuscular Volume 81.8 FL (87-102); Mean Platelet Volume 9.4 FL (9.6-12.0); Monocytes # 0.4 10*3/uL (0.11-0.8); Monocytes % 2.2 % (1.7-12.7); Neutrophils # 15.6 10*3/uL (1.4-7.4); Neutrophils % 92.3 % (38.7-73.9); Platelet Count 342 T/CUMM (130-400); Red Blood Count 4.46 MC/CUMM (3.8-5.5); Red Cell Distribution Width 21.1 % (9.3-17.3); White Blood Count 16.9 T/CUMM (4-12)
[2018-07-13 22:35] LABS: Band Neutrophils 1 % (0-10); Lymphocytes 5 % (20-55); Segmented Neutrophils 92 % (50-85); Total Cells Counted 100
[2018-07-13 22:35] LABS: PT Patient Result 11.2 SECS
[2018-07-13 22:36] LABS: Polychromasia Few
[2018-07-13 22:37] LABS: Anisocytosis Slight; Platelet Estimate Adequate
[2018-07-13 23:07] LABS: Albumin 2.4 G/DL (3.4-5.0); Bilirubin,Total 0.4 MG/DL (0.2-1.0); Calcium 9.4 MG/DL (8.5-10.1); Lactic Acid 2.6 MMOL/L (0.4-2.0); Osmolality,Calculated 301.7 MOS/KG (273-304); Potassium 5.2 MMOL/L (3.5-5.1)
[2018-07-13] MEDS: MEROPENEM 1,000 MG in SODIUM CHLORIDE 0.9% 100 ML IV SCH (23:25)
[2018-07-14] MEDS ORDERED: ACETAMINOPHEN 325 MG TABLET PO PRN (00:59)
[2018-07-14] MEDS ORDERED: ONDANSETRON 4 MG/2 ML VIAL IV PRN (00:59)
[2018-07-14 01:34] LABS: Basophils % 0.1 % (0.0-0.8); Hematocrit 35.5 VOL% (42.0-52.0); Hemoglobin 11.2 GM/DL (14.0-18.0); Immature Granulocytes % 2.1 %; Immature Granulocytes Absolute 0.32 #; Lymphocytes # 0.6 10*3/uL (1.4-4.0); Lymphocytes % 3.8 % (21.2-54.2); Mean Corpuscular HGB Conc 31.5 GM/DL (32-36); Mean Corpuscular Hemoglobin 26 PG (27-34); Mean Corpuscular Volume 82.4 FL (87-102); Mean Platelet Volume 9.3 FL (9.6-12.0); Monocytes # 0.5 10*3/uL (0.11-0.8); Monocytes % 3.1 % (1.7-12.7); Neutrophils % 90.9 % (38.7-73.9); Platelet Count 335 T/CUMM (130-400); Red Blood Count 4.31 MC/CUMM (3.8-5.5); Red Cell Distribution Width 21.1 % (9.3-17.3); White Blood Count 15.4 T/CUMM (4-12)
[2018-07-14 01:54] LABS: Lactic Acid 4.5 MMOL/L (0.4-2.0)
[2018-07-14 01:55] LABS: Alanine Aminotransferase 13 U/L (16-61); Albumin 2.2 G/DL (3.4-5.0); Alkaline Phosphatase 87 U/L (45-117); Aspartate Amino Transferase 3 U/L (0-37); Bilirubin,Total < 0.39 MG/DL (0.2-1.0); Blood Urea Nitrogen 38 MG/DL (7-18); Glucose 125 MG/DL (74-106); Osmolality,Calculated 303.3 MOS/KG (273-304); Potassium 4.9 MMOL/L (3.5-5.1); Sodium 148 MMOL/L (136-145); Total Protein 6.8 G/DL (6.4-8.3)
[2018-07-14 01:57] LABS: Band Neutrophils 2 % (0-10); Lymphocytes 3 % (20-55); Segmented Neutrophils 91 % (50-85)
[2018-07-14 01:59] LABS: Microcytosis 1+; Ovalocytes 1+; Platelet Estimate Normal; Polychromasia Few
[2018-07-14 02:00] LABS: Total Cells Counted 100
[2018-07-14] MEDS: SODIUM CHLORIDE 0.9% 1,000 ML IV SCH ×3 (02:01→17:34)
[2018-07-14] MEDS: ALBUTEROL/IPRATROPIUM 3 ML NEB RESP TX SCH ×6 (04:15→23:46)
[2018-07-14] MEDS ORDERED: ALBUTEROL 2.5 MG/3 ML NEB RESP TX PRN (07:28)
[2018-07-14] MEDS ORDERED: Tiotropium Br/Olodaterol Hcl [Stiolto Respimat Inhal Spray] 2 PU INH SCH (09:00)
[2018-07-14] MEDS: CEFEPIME 1,000 MG in SYRINGE 1 EACH IV SCH (09:55)
[2018-07-14] MEDS: predniSONE 20 MG TABLET PO SCH (09:55)
[2018-07-14] MEDS: IRON (CARBONYL)/VIT C/B12/FA TABLET PO SCH (09:55)
[2018-07-14] MEDS: PANTOPRAZOLE 40 MG TABLET PO SCH (09:55)
[2018-07-14] MEDS: TAMSULOSIN 0.4 MG CAPSULE PO SCH ×2 (09:55→20:21)
[2018-07-14] MEDS: THEOPHYLLINE ER (24 HR) 400 MG TABLET PO SCH ×2 (09:56→17:35)
[2018-07-14] MEDS: DOCUSATE SODIUM 100 MG CAPSULE PO SCH ×2 (09:56→20:21)
[2018-07-14] MEDS: MAGNESIUM OXIDE 400 MG TABLET PO SCH (09:56)
[2018-07-14] MEDS: ASPIRIN EC 81 MG TABLET PO SCH (09:56)
[2018-07-14] MEDS: FINASTERIDE 5 MG TABLET PO SCH (09:56)
[2018-07-14] MEDS: MEROPENEM 1,000 MG in SODIUM CHLORIDE 0.9% 100 ML IV SCH (10:00)
[2018-07-14] MEDS: SIMVASTATIN 10 MG TABLET PO SCH (17:35)
[2018-07-14] MEDS ORDERED: LEVOFLOXACIN INJ 750 MG in PREMIX 1 EACH IV SCH (20:00)
[2018-07-15] MEDS: SODIUM CHLORIDE 0.9% 1,000 ML IV SCH ×4 (01:56→20:49)
[2018-07-15] MEDS: ALBUTEROL/IPRATROPIUM 3 ML NEB RESP TX SCH ×6 (04:09→23:40)
[2018-07-15] MEDS ORDERED: BELLADONNA/OPIUM 30 MG SUPP RECTAL PRN (08:59)
[2018-07-15] MEDS ORDERED: PHENAZOPYRIDINE 95 MG TABLET PO PRN (09:01)
[2018-07-15] MEDS: THEOPHYLLINE ER (24 HR) 400 MG TABLET PO SCH ×2 (09:39→16:41)
[2018-07-15] MEDS: MAGNESIUM OXIDE 400 MG TABLET PO SCH (09:40)
[2018-07-15] MEDS: TAMSULOSIN 0.4 MG CAPSULE PO SCH ×2 (09:41→20:50)
[2018-07-15] MEDS: PANTOPRAZOLE 40 MG TABLET PO SCH (09:41)
[2018-07-15] MEDS: FINASTERIDE 5 MG TABLET PO SCH (09:41)
[2018-07-15] MEDS: IRON (CARBONYL)/VIT C/B12/FA TABLET PO SCH (09:41)
[2018-07-15 09:42] LABS: Calcium 8.4 MG/DL (8.5-10.1); Osmolality,Calculated 299.3 MOS/KG (273-304); Potassium 4.5 MMOL/L (3.5-5.1)
[2018-07-15] MEDS: DOCUSATE SODIUM 100 MG CAPSULE PO SCH ×2 (09:42→20:50)
[2018-07-15] MEDS: predniSONE 20 MG TABLET PO SCH (09:42)
[2018-07-15] MEDS: ASPIRIN EC 81 MG TABLET PO SCH (09:42)
[2018-07-15] MEDS: MEGESTROL 400 MG/10 ML UDCUP PO SCH (09:42)
[2018-07-15] MEDS: CEFEPIME 1,000 MG in SYRINGE 1 EACH IV SCH (09:43)
[2018-07-15 09:50] LABS: Basophils % 0.1 % (0.0-0.8); Eosinophils % 0.2 % (0.00-10.9); Hematocrit 28.5 VOL% (42.0-52.0); Immature Granulocytes % 3.7 %; Immature Granulocytes Absolute 0.57 #; Lymphocytes # 0.9 10*3/uL (1.4-4.0); Lymphocytes % 6.1 % (21.2-54.2); Mean Corpuscular HGB Conc 31.9 GM/DL (32-36); Mean Corpuscular Hemoglobin 26 PG (27-34); Mean Corpuscular Volume 82.6 FL (87-102); Mean Platelet Volume 8.8 FL (9.6-12.0); Monocytes # 0.7 10*3/uL (0.11-0.8); Monocytes % 4.7 % (1.7-12.7); NRBC # 0.02 10*3/uL; Neutrophils # 13.1 10*3/uL (1.4-7.4); Neutrophils % 85.2 % (38.7-73.9); Platelet Count 265 T/CUMM (130-400); Red Blood Count 3.45 MC/CUMM (3.8-5.5); Red Cell Distribution Width 21.4 % (9.3-17.3); White Blood Count 15.4 T/CUMM (4-12)
[2018-07-15 09:54] LABS: Anisocytosis 1+; Platelet Estimate Normal; Polychromasia Slight
[2018-07-15 09:55] LABS: Poikilocytosis Slight
[2018-07-15 10:05] LABS: Hemoglobin 9.1 GM/DL (14.0-18.0)
[2018-07-15 11:16] LABS: Band Neutrophils 1 % (0-10); Eosinophils 1 % (0-10); Lymphocytes 6 % (20-55); Segmented Neutrophils 90 % (50-85); Total Cells Counted 100
[2018-07-15] MEDS: ERTAPENEM 1,000 MG in SODIUM CHLORIDE 0.9% 100 ML IV SCH (14:09)
[2018-07-15] MEDS: FLUCONAZOLE 100 MG TABLET PO SCH (14:25)
[2018-07-15] MEDS: SIMVASTATIN 10 MG TABLET PO SCH (16:42)
[2018-07-16] MEDS: ALBUTEROL/IPRATROPIUM 3 ML NEB RESP TX SCH ×6 (03:55→23:55)
[2018-07-16 06:06] LABS: Basophils % 0.1 % (0.0-0.8); Hematocrit 27.3 VOL% (42.0-52.0); Hemoglobin 8.7 GM/DL (14.0-18.0); Immature Granulocytes % 5.4 %; Immature Granulocytes Absolute 0.73 #; Lymphocytes # 0.9 10*3/uL (1.4-4.0); Lymphocytes % 6.4 % (21.2-54.2); Mean Corpuscular HGB Conc 31.9 GM/DL (32-36); Mean Corpuscular Hemoglobin 26 PG (27-34); Mean Corpuscular Volume 82.2 FL (87-102); Mean Platelet Volume 9.5 FL (9.6-12.0); Monocytes # 0.5 10*3/uL (0.11-0.8); Monocytes % 3.9 % (1.7-12.7); NRBC # 0.04 10*3/uL; Neutrophils # 11.4 10*3/uL (1.4-7.4); Neutrophils % 84.2 % (38.7-73.9); Platelet Count 289 T/CUMM (130-400); Red Blood Count 3.32 MC/CUMM (3.8-5.5); Red Cell Distribution Width 21.2 % (9.3-17.3); White Blood Count 13.5 T/CUMM (4-12)
[2018-07-16 06:16] LABS: Calcium 8.4 MG/DL (8.5-10.1); Potassium 4.3 MMOL/L (3.5-5.1)
[2018-07-16 09:05] LABS: Lymphocytes 2 % (20-55); Platelet Estimate Normal; Polychromasia Few; Segmented Neutrophils 92 % (50-85); Total Cells Counted 100
[2018-07-16] MEDS: THEOPHYLLINE ER (24 HR) 400 MG TABLET PO SCH ×2 (09:36→16:26)
[2018-07-16] MEDS: TAMSULOSIN 0.4 MG CAPSULE PO SCH ×2 (09:37→21:03)
[2018-07-16] MEDS: IRON (CARBONYL)/VIT C/B12/FA TABLET PO SCH (09:37)
[2018-07-16] MEDS: MAGNESIUM OXIDE 400 MG TABLET PO SCH (09:37)
[2018-07-16] MEDS: FINASTERIDE 5 MG TABLET PO SCH (09:37)
[2018-07-16] MEDS: PANTOPRAZOLE 40 MG TABLET PO SCH (09:38)
[2018-07-16] MEDS: ASPIRIN EC 81 MG TABLET PO SCH (09:38)
[2018-07-16] MEDS: predniSONE 20 MG TABLET PO SCH (09:38)
[2018-07-16] MEDS: FLUCONAZOLE 100 MG TABLET PO SCH (09:38)
[2018-07-16] MEDS: MEGESTROL 400 MG/10 ML UDCUP PO SCH (09:38)
[2018-07-16] MEDS: DOCUSATE SODIUM 100 MG CAPSULE PO SCH ×2 (09:38→21:03)
[2018-07-16] MEDS: SODIUM CHLORIDE 0.9% 1,000 ML IV SCH ×2 (09:39→10:38)
[2018-07-16] MEDS: ERTAPENEM 1,000 MG in SODIUM CHLORIDE 0.9% 100 ML IV SCH (14:00)
[2018-07-16] MEDS: SIMVASTATIN 10 MG TABLET PO SCH (16:26)
[2018-07-17] MEDS: ALBUTEROL/IPRATROPIUM 3 ML NEB RESP TX SCH ×2 (03:40→07:57)
[2018-07-17 04:10] LABS: Basophils % 0.1 % (0.0-0.8); Eosinophils % 0.1 % (0.00-10.9); Hematocrit 31.9 VOL% (42.0-52.0); Hemoglobin 10.3 GM/DL (14.0-18.0); Immature Granulocytes % 4.6 %; Lymphocytes % 5.8 % (21.2-54.2); Mean Corpuscular HGB Conc 32.3 GM/DL (32-36); Mean Corpuscular Hemoglobin 27 PG (27-34); Mean Corpuscular Volume 82.4 FL (87-102); Mean Platelet Volume 8.9 FL (9.6-12.0); Monocytes # 0.6 10*3/uL (0.11-0.8); Monocytes % 3.5 % (1.7-12.7); NRBC # 0.07 10*3/uL; Neutrophils # 14.9 10*3/uL (1.4-7.4); Neutrophils % 85.9 % (38.7-73.9); Platelet Count 286 T/CUMM (130-400); Red Blood Count 3.87 MC/CUMM (3.8-5.5); Red Cell Distribution Width 21.5 % (9.3-17.3); White Blood Count 17.3 T/CUMM (4-12)
[2018-07-17 04:26] LABS: Calcium 8.8 MG/DL (8.5-10.1); Osmolality,Calculated 297.3 MOS/KG (273-304); Potassium 3.9 MMOL/L (3.5-5.1)
[2018-07-17] MEDS: MORPHINE 4 MG/1 ML VIAL IV PRN ×2 (04:34→16:29)
[2018-07-17 04:36] LABS: Band Neutrophils 1 % (0-10); Eosinophils 1 % (0-10); Lymphocytes 7 % (20-55); Myelocytes 1 %; Segmented Neutrophils 89 % (50-85); Total Cells Counted 100
[2018-07-17 04:37] LABS: Platelet Estimate Normal; Polychromasia Few; Schistocytes Few
[2018-07-17] MEDS: DEXTROSE 5% NACL 0.45% 1,000 ML IV SCH ×2 (04:57→16:12)
[2018-07-17] MEDS: THEOPHYLLINE ER (24 HR) 400 MG TABLET PO SCH ×2 (08:52→16:13)
[2018-07-17] MEDS: FINASTERIDE 5 MG TABLET PO SCH (08:53)
[2018-07-17] MEDS: DOCUSATE SODIUM 100 MG CAPSULE PO SCH ×2 (08:53→21:21)
[2018-07-17] MEDS: TAMSULOSIN 0.4 MG CAPSULE PO SCH ×2 (08:53→21:21)
[2018-07-17] MEDS: ASPIRIN EC 81 MG TABLET PO SCH (08:53)
[2018-07-17] MEDS: IRON (CARBONYL)/VIT C/B12/FA TABLET PO SCH (08:53)
[2018-07-17] MEDS: predniSONE 20 MG TABLET PO SCH (08:53)
[2018-07-17] MEDS: MAGNESIUM OXIDE 400 MG TABLET PO SCH (08:54)
[2018-07-17] MEDS: PANTOPRAZOLE 40 MG TABLET PO SCH (08:54)
[2018-07-17] MEDS: FLUCONAZOLE 100 MG TABLET PO SCH (08:55)
[2018-07-17] MEDS: MEGESTROL 400 MG/10 ML UDCUP PO SCH (08:57)
[2018-07-17] MEDS ORDERED: LEVALBUTEROL 1.25 MG/3 ML NEB RESP TX PRN (09:50)
[2018-07-17] MEDS: ERTAPENEM 1,000 MG in SODIUM CHLORIDE 0.9% 100 ML IV SCH (13:35)
[2018-07-17] MEDS: LEVALBUTEROL 1.25 MG/3 ML NEB RESP TX SCH ×2 (13:42→20:06)
[2018-07-17] MEDS: SIMVASTATIN 10 MG TABLET PO SCH (16:13)
[2018-07-18] MEDS: LEVALBUTEROL 1.25 MG/3 ML NEB RESP TX SCH ×2 (01:47→07:41)
[2018-07-18] MEDS: DEXTROSE 5% NACL 0.45% 1,000 ML IV SCH ×3 (02:29→23:36)
[2018-07-18 03:16] LABS: Basophils % 0.1 % (0.0-0.8); Eosinophils % 0.2 % (0.00-10.9); Hematocrit 28.9 VOL% (42.0-52.0); Hemoglobin 9.2 GM/DL (14.0-18.0); Immature Granulocytes % 3.1 %; Lymphocytes # 1.1 10*3/uL (1.4-4.0); Lymphocytes % 6.7 % (21.2-54.2); Mean Corpuscular HGB Conc 31.8 GM/DL (32-36); Mean Corpuscular Hemoglobin 26 PG (27-34); Mean Corpuscular Volume 82.1 FL (87-102); Mean Platelet Volume 8.7 FL (9.6-12.0); Monocytes # 0.5 10*3/uL (0.11-0.8); Monocytes % 2.9 % (1.7-12.7); NRBC # 0.06 10*3/uL; Platelet Count 243 T/CUMM (130-400); Red Blood Count 3.52 MC/CUMM (3.8-5.5); Red Cell Distribution Width 21.7 % (9.3-17.3); White Blood Count 16.1 T/CUMM (4-12)
[2018-07-18] MEDS: MORPHINE 4 MG/1 ML VIAL IV PRN (03:24)
[2018-07-18] MEDS: METOPROLOL TARTRATE 25 MG TABLET PO SCH ×3 (03:30→21:45)
[2018-07-18 03:35] LABS: Osmolality,Calculated 294.6 MOS/KG (273-304); Potassium 4.1 MMOL/L (3.5-5.1)
[2018-07-18] MEDS ORDERED: ALBUTEROL 1.25 MG/3 ML NEB RESP TX PRN (08:10)
[2018-07-18] MEDS: MEGESTROL 400 MG/10 ML UDCUP PO SCH (10:30)
[2018-07-18] MEDS: FINASTERIDE 5 MG TABLET PO SCH (10:30)
[2018-07-18] MEDS: THEOPHYLLINE ER (24 HR) 400 MG TABLET PO SCH ×2 (10:30→16:21)
[2018-07-18] MEDS: IRON (CARBONYL)/VIT C/B12/FA TABLET PO SCH (10:31)
[2018-07-18] MEDS: MAGNESIUM OXIDE 400 MG TABLET PO SCH (10:31)
[2018-07-18] MEDS: PANTOPRAZOLE 40 MG TABLET PO SCH (10:32)
[2018-07-18] MEDS: TAMSULOSIN 0.4 MG CAPSULE PO SCH ×2 (10:32→21:45)
[2018-07-18] MEDS: DOCUSATE SODIUM 100 MG CAPSULE PO SCH ×2 (10:32→21:45)
[2018-07-18] MEDS: predniSONE 20 MG TABLET PO SCH (10:33)
[2018-07-18] MEDS: ASPIRIN EC 81 MG TABLET PO SCH (10:33)
[2018-07-18] MEDS: ERTAPENEM 1,000 MG in SODIUM CHLORIDE 0.9% 100 ML IV SCH (14:28)
[2018-07-18] MEDS: SIMVASTATIN 10 MG TABLET PO SCH (16:21)
[2018-07-18] MEDS ORDERED: LORazepam 2 MG/1 ML VIAL IV PRN (19:36)
[2018-07-19 05:24] LABS: Basophils % 0.1 % (0.0-0.8); Eosinophils % 0.3 % (0.00-10.9); Hematocrit 27.4 VOL% (42.0-52.0); Hemoglobin 8.7 GM/DL (14.0-18.0); Immature Granulocytes % 2.3 %; Immature Granulocytes Absolute 0.36 #; Lymphocytes # 0.9 10*3/uL (1.4-4.0); Lymphocytes % 5.5 % (21.2-54.2); Mean Corpuscular HGB Conc 31.8 GM/DL (32-36); Mean Corpuscular Hemoglobin 26 PG (27-34); Mean Platelet Volume 8.8 FL (9.6-12.0); Monocytes # 0.6 10*3/uL (0.11-0.8); Monocytes % 3.8 % (1.7-12.7); NRBC # 0.04 10*3/uL; Neutrophils # 13.8 10*3/uL (1.4-7.4); Platelet Count 245 T/CUMM (130-400); Red Cell Distribution Width 21.8 % (9.3-17.3); White Blood Count 15.7 T/CUMM (4-12)
[2018-07-19 05:42] LABS: Calcium 7.9 MG/DL (8.5-10.1); Potassium 4.1 MMOL/L (3.5-5.1)
[2018-07-19] MEDS: DOCUSATE SODIUM 100 MG CAPSULE PO SCH ×2 (09:29→20:35)
[2018-07-19] MEDS: IRON (CARBONYL)/VIT C/B12/FA TABLET PO SCH (09:29)
[2018-07-19] MEDS: MAGNESIUM OXIDE 400 MG TABLET PO SCH (09:30)
[2018-07-19] MEDS: METOPROLOL TARTRATE 25 MG TABLET PO SCH ×2 (09:30→20:35)
[2018-07-19] MEDS: FINASTERIDE 5 MG TABLET PO SCH (09:30)
[2018-07-19] MEDS: MEGESTROL 400 MG/10 ML UDCUP PO SCH (09:31)
[2018-07-19] MEDS: TAMSULOSIN 0.4 MG CAPSULE PO SCH ×2 (09:31→20:35)
[2018-07-19] MEDS: THEOPHYLLINE ER (24 HR) 400 MG TABLET PO SCH ×2 (09:31→17:25)
[2018-07-19] MEDS: predniSONE 20 MG TABLET PO SCH (09:31)
[2018-07-19] MEDS: ASPIRIN EC 81 MG TABLET PO SCH (09:34)
[2018-07-19] MEDS: DEXTROSE 5% NACL 0.45% 1,000 ML IV SCH ×2 (10:29→20:39)
[2018-07-19] MEDS: PANTOPRAZOLE 40 MG TABLET PO SCH (15:16)
[2018-07-19] MEDS: ERTAPENEM 1,000 MG in SODIUM CHLORIDE 0.9% 100 ML IV SCH (15:16)
[2018-07-19] MEDS: MAGNESIUM HYDROXIDE SUSP 30 ML UDCUP PO PRN (17:26)
[2018-07-19] MEDS: SIMVASTATIN 10 MG TABLET PO SCH (17:26)
[2018-07-20 05:36] LABS: Basophils % 0.1 % (0.0-0.8); Eosinophils % 0.2 % (0.00-10.9); Hematocrit 31.3 VOL% (42.0-52.0); Immature Granulocytes % 2.2 %; Immature Granulocytes Absolute 0.33 #; Lymphocytes # 0.9 10*3/uL (1.4-4.0); Lymphocytes % 6.2 % (21.2-54.2); Mean Corpuscular HGB Conc 31.9 GM/DL (32-36); Mean Corpuscular Hemoglobin 26 PG (27-34); Mean Corpuscular Volume 82.2 FL (87-102); Monocytes # 0.6 10*3/uL (0.11-0.8); Monocytes % 3.7 % (1.7-12.7); NRBC # 0.02 10*3/uL; Neutrophils # 13.3 10*3/uL (1.4-7.4); Neutrophils % 87.6 % (38.7-73.9); Platelet Count 242 T/CUMM (130-400); Red Blood Count 3.81 MC/CUMM (3.8-5.5); Red Cell Distribution Width 22.1 % (9.3-17.3); White Blood Count 15.2 T/CUMM (4-12)
[2018-07-20 06:05] LABS: Osmolality,Calculated 285.1 MOS/KG (273-304); Potassium 4.5 MMOL/L (3.5-5.1)
[2018-07-20 06:17] LABS: Hypochromasia 1+
[2018-07-20 06:18] LABS: Giant Platelets Few; Ovalocytes Slight; Platelet Estimate Adequate
[2018-07-20] MEDS: DEXTROSE 5% NACL 0.45% 1,000 ML IV SCH (06:59)
[2018-07-20] MEDS: MAGNESIUM OXIDE 400 MG TABLET PO SCH (08:45)
[2018-07-20] MEDS: TAMSULOSIN 0.4 MG CAPSULE PO SCH (08:45)
[2018-07-20] MEDS: DOCUSATE SODIUM 100 MG CAPSULE PO SCH (08:45)
[2018-07-20] MEDS: ASPIRIN EC 81 MG TABLET PO SCH (08:45)
[2018-07-20] MEDS: MEGESTROL 400 MG/10 ML UDCUP PO SCH (08:45)
[2018-07-20] MEDS: THEOPHYLLINE ER (24 HR) 400 MG TABLET PO SCH (08:45)
[2018-07-20] MEDS: IRON (CARBONYL)/VIT C/B12/FA TABLET PO SCH (08:45)
[2018-07-20] MEDS: predniSONE 20 MG TABLET PO SCH (08:45)
[2018-07-20] MEDS: FINASTERIDE 5 MG TABLET PO SCH (08:45)
[2018-07-20] MEDS: METOPROLOL TARTRATE 25 MG TABLET PO SCH (08:45)
[2018-07-20] MEDS: PANTOPRAZOLE 40 MG TABLET PO SCH (08:45)
[2018-07-20 08:55] VITALS: BP 132/78
[2018-07-20] MEDS: MAGNESIUM HYDROXIDE SUSP 30 ML UDCUP PO PRN (10:21)
== END 2018-07-20 12:01 | DRG 690 ==
LOC: N.ED 18:50 → N.EDINP 23:26 → N.5E 07-14 00:58
PROVIDERS: ADMIT Family Medicine; ATTEND Family Medicine